=== PATIENT | female | born 1980 | race Caucasian/White ===

== ENCOUNTER → 2019-05-14 | Outpatient (CLI) | payer OTHER ==
--- NOTE | 2019-05-14 17:14 | XR ---
EXAMINATION TYPE: XR hand complete RT DATE OF EXAM: 05/14/2019 COMPARISON: NONE HISTORY: 38-year-old female possible glass in hand, M25.559, M79.644, M54.9 TECHNIQUE: 3 views FINDINGS: No retained radiopaque foreign body is identified. No acute fracture, subluxation, or dislocation. IMPRESSION: No retained radiopaque foreign body seen. No acute osseous abnormality.
--- NOTE | 2019-05-14 17:17 | XR ---
EXAMINATION TYPE: XR lumbosacral spine min 4V, XR Hip Bilateral 2 views each Complete DATE OF EXAM: 05/14/2019 COMPARISON: NONE HISTORY: 38-year-old female chronic hip pain, M25.559, M79.644, M54.9 FINDINGS: Lumbar spine: There seems to be a transitional lumbosacral segment on the frontal view, not clearly identified on t he lateral view. Facet arthropathy lower lumbar spine. Vertebral body heights are preserved and align ment is maintained. No pars interarticularis defect. Hips: Joint space appears relatively maintained in both hips. No acute fracture, subluxation, or dislocatio n. IMPRESSION: 1. Lumbar spine: Facet arthropathy lower lumbar spine. Possible transitional lumbosacral segment. No vertebral compression collapse or malalignment. 2. Hips: No acute osseous abnormality seen.
== END | disposition home or self-care (01) ==
LOC: RADXRMAIN 15:25
PROVIDERS: ATTEND Physician Assistant
DX: M79.644 Pain in right finger(s) (principal); M46.96 Unspecified inflammatory spondylopathy, lumbar region; M25.551 Pain in right hip; M25.552 Pain in left hip
CPT/HCPCS: 72110; 73521

== ENCOUNTER → 2019-05-14 | Outpatient (CLI) | payer OTHER ==
--- NOTE | 2019-05-15 09:44 | MM ---
Reason for exam: screening (asymptomatic). Baseline mammogram. History: Family history of breast cancer in mother at age 65, breast cancer in maternal grandmother, and breast cancer in paternal grandmother. Physical Findings: Nurse Summary: 1cm nodule in the right breast at 10 o'clock (nurse silvia). MG Screening Mammo w CAD Bilateral CC and MLO view(s) were taken. The breast tissue is heterogeneously dense. This may lower the sensitivity of mammography. Focal asymmetry upper outer quadrant on the right and upper inner quadrant anteriorly left breast. These results were verbally communicated with the patient and result sheet given to the patient on 05/14/19. ASSESSMENT: Incomplete: need additional imaging evaluation, BI-RAD 0 RECOMMENDATION: Special view mammogram of both breasts.
--- NOTE | 2019-05-15 09:46 | MM ---
Reason for exam: additional evaluation requested from abnormal screening. History: Family history of breast cancer in mother at age 65, breast cancer in maternal grandmother, and breast cancer in paternal grandmother. Physical Findings: Breast exam preformed at baseline screening. MG Work Up Mamm w CAD BILAT Bilateral spot compression CC, spot compression MLO, and ML view(s) were taken. The breast tissue is heterogeneously dense. This may lower the sensitivity of mammography. Right focal asymmetry upper outer quadrant. Possible distortion posterior left CC view laterally upper outer quadrant. Medial asymmetry density disperses. These results were verbally communicated with the patient and result sheet given to the patient on 05/14/19. ASSESSMENT: Incomplete: need additional imaging evaluation, BI-RAD 0 RECOMMENDATION: Ultrasound of both breasts. (upper outer quadrant)
--- NOTE | 2019-05-15 09:49 | USB ---
Reason for exam: additional evaluation requested from abnormal screening. History: Family history of breast cancer in mother at age 65, breast cancer in maternal grandmother, and breast cancer in paternal grandmother. US Breast Workup Limited JULIANA Right limited breast ultrasound including focal area of concern, retroareolar and axilla demonstrates a 5 x 2 x 4m oval, mixed lesion at 12 o'clock and duct ectasia. Scanned 9-12 o'clock. Left limited breast ultrasound including focal area of concern, retroareolar and axilla demonstrates a 5 x 2 x 4mm oval, mixed lesion at 3 o'clock and duct ectasia. Scanned 12-3 o'clock. No other solid or cystic lesion. 6 month follow up mammogram recommended. These results were verbally communicated with the patient and result sheet given to the patient on 05/14/19. ASSESSMENT: Probably benign, BI-RAD 3 RECOMMENDATION: Follow-up diagnostic mammogram of both breasts in 6 months.
== END | disposition home or self-care (01) ==
LOC: RADMAMWWP 12:22
PROVIDERS: ATTEND Pediatrics
DX: Z12.31 Encounter for screening mammogram for malignant neoplasm of breast (principal); R92.8 Other abnormal and inconclusive findings on diagnostic imaging of breast
CPT/HCPCS: 77066; 77067

== ENCOUNTER → 2019-05-28 | Outpatient (CLI) | payer OTHER ==
--- NOTE | 2019-05-29 08:38 | XR ---
EXAMINATION TYPE: XR foot complete RT DATE OF EXAM: 05/28/2019 COMPARISON: None HISTORY: Pain TECHNIQUE: Three-view right foot FINDINGS: Joint spaces are preserved. No acute fractures or dislocations are evident. Mild soft tissu e prominence may be over the first metatarsal phalangeal joint spaces. Follow-up exams can be performed 7-10 days from acute trauma for continued pain IMPRESSION: 1. No acute osseous abnormality.
== END | disposition home or self-care (01) ==
LOC: RADXRMAIN 15:50
PROVIDERS: ATTEND Family Medicine
DX: M79.671 Pain in right foot (principal)

== ENCOUNTER → 2019-06-05 | Outpatient (CLI) | payer OTHER ==
--- NOTE | 2019-06-05 11:22 | ECHOS ---
STRESS ECHOCARDIOGRAM DATE OF SERVICE: 06/05/2019 INDICATIONS: Chest pain. MEDICATIONS: Lisinopril, metoprolol, simvastatin. BASELINE HEART RATE: 74 BASELINE BLOOD PRESSURE: 109/52 MAXIMUM HEART RATE: 159 MAXIMUM BLOOD PRESSURE: 163/70 85% MPHR: 154 100% MPHR: 181 METS: 10.9 MAXIMUM STAGE REACHED: IV TOTAL EXERCISE TIME: 9-1/2 minutes. CLINICAL INFORMATION: A 38-year-old female with chest pain. Baseline heart rate 74 beats per minute. Baseline blood pressure 109/52 mmHg. Baseline 12-lead ECG shows normal sinus rhythm with normal ST segments, normal QRS, normal ID. Patient exercised on a Los protocol for 9-1/2 minutes achieving a peak heart rate of 159 beats per minute. Normal blood pressure response to exercise. There was a 0.[address]-depression upsloping to horizontal without any chest discomfort or undue shortness of breath. There was no evidence for arrhythmias. Baseline 2D echo images showed normal LV size and systolic function without segmental wall motion abnormalities. At peak exercise, there was excellent augmentation of overall LV contractility without developing any wall motion abnormalities. At recovery, regional global LV systolic function remained normal. IMPRESSION: 1. Good exercise capacity. 2. The patient reached stage IV of the Los protocol. 3. Normal heart rate and blood pressure response without any arrhythmias. 4. Borderline ECG changes, but no commensurate echocardiographic abnormalities. No echocardiographic evidence for ischemia. MMODL / IJN: [id number] /
== END | disposition home or self-care (01) ==
LOC: RADNMMAIN 09:49
PROVIDERS: ATTEND Family Medicine
DX: R07.9 Chest pain, unspecified (principal)
CPT/HCPCS: 93351

== ENCOUNTER → 2019-07-31 | Outpatient (CLI) | payer OTHER ==
--- NOTE | 2019-07-31 13:56 | XR ---
EXAMINATION TYPE: XR shoulder complete LT DATE OF EXAM: 07/31/2019 CLINICAL HISTORY: Pain without injury. TECHNIQUE: Three views of the left shoulder are obtained. COMPARISON: None. FINDINGS: There is no acute fracture/dislocation evident in the left shoulder. Mild to moderate narr owing at glenohumeral and acromioclavicular joints. Distal acromion morphology unremarkable. The visu alized ribs are intact and unremarkable. IMPRESSION: As above.
== END | disposition home or self-care (01) ==
LOC: RADXRMAIN 13:18
PROVIDERS: ATTEND Family Medicine
DX: R93.7 Abnormal findings on diagnostic imaging of other parts of musculoskeletal system (principal); M25.519 Pain in unspecified shoulder

== ENCOUNTER → 2019-08-26 | Outpatient (CLI) | payer OTHER ==
--- NOTE | 2019-08-26 11:08 | US ---
EXAMINATION TYPE: US pelvic complete DATE OF EXAM: 08/26/2019 COMPARISON: NONE CLINICAL HISTORY: N92.0 Excessive and frequent menstruation with reg. Heavy periods. TECHNIQUE: Transabdominal (TA). Transabdominal sonographic images of the pelvis were acquired. EXAM MEASUREMENTS: Uterus: 8.4 x 5.4 x 5.7 cm Endometrial Stripe: .7 cm Right Ovary: 2.6 x 1.7 x 1.4 cm cm Left Ovary: 5.4 x 3.6 x 3.3 cm 1. Uterus: Heterogenous question fibroid visualized 1.6 x 1.5 x 1.1cm. 2. Endometrium: wnl 3. Right Ovary: wnl 4. Left Ovary: Complex area 3.8 x 2.7 x 3.6 cm 5. Bilateral Adnexa: wnl 6. Posterior cul-de-sac: wnl IMPRESSION: 1. Probable leiomyomatous uterus. 2. Complex left ovarian lesion may reflect a hemorrhagic cyst although lesion of other etiology is di fficult to exclude. Follow-up study in 6 weeks is advised.
== END | disposition home or self-care (01) ==
LOC: RADUSWWP 10:03
PROVIDERS: ATTEND Obstetrics & Gynecology
DX: N83.8 Other noninflammatory disorders of ovary, fallopian tube and broad ligament (principal)
CPT/HCPCS: 76856

== ENCOUNTER → 2019-10-28 | Outpatient (CLI) | payer OTHER ==
--- NOTE | 2019-10-28 13:53 | US ---
EXAMINATION TYPE: US pelvic complete DATE OF EXAM: 10/28/2019 COMPARISON: NONE CLINICAL HISTORY: left ovarian cyst N83.0. Follow up to previous TECHNIQUE: Transabdominal (TA). Transabdominal sonographic images of the pelvis were acquired. EXAM MEASUREMENTS: Uterus: 10.3 x 5.8 x 6.7 cm Endometrial Stripe: .7 cm Right Ovary: 3.0 x 2.2 x 2.3 cm Left Ovary: 2.9 x 1.7 x 2.7 cm 1. Uterus: Anteverted heterogenous Fibroid 2.4 x 1.9 cm 2. Endometrium: wnl 3. Right Ovary: wnl 4. Left Ovary: wnl 5. Bilateral Adnexa: wnl 6. Posterior cul-de-sac: wnl IMPRESSION: Fibroid uterus. Left ovary shows an improved appearance
== END | disposition home or self-care (01) ==
LOC: RADUSWWP 11:05
PROVIDERS: ATTEND Obstetrics & Gynecology
DX: D25.9 Leiomyoma of uterus, unspecified (principal); N83.02 Follicular cyst of left ovary
CPT/HCPCS: 76856

== ENCOUNTER → 2019-11-01 | Day surgery (SDC) | payer OTHER ==
[2019-10-31 10:55] VITALS: BMI 32.9
--- NOTE | 2019-10-31 16:18 | P.HPOB ---
History of Present Illness H&P Date: 10/31/19 Chief Complaint: Menorrhagia Patient is a 38-year-old female who has type 1 diabetes and poor sure controls and that are made worse with her heavy vaginal bleeding. She is scheduled for D&C with hysteroscopy NovaSure ablation to limit her bleeding to try and help with her blood sugar control. Risks/benefits/returns to this procedure were reviewed the patient in detail and did include but were not limited to bleeding or infection, damage to bladder or bowel, nerve injuries or vessel injuries as well as potential thermal damage. Potential need for further surgeries. All questions were answered for her prior to proceeding to the operating room. She has had a prior tube ligation. Past Medical History Past Medical History: Diabetes Mellitus, Hyperlipidemia, Hypertension Additional Past Medical History / Comment(s): HEAVY IRREGULAR PERIODS, POSSIBLE CYST ON OVARY. CURRENT FROZEN LT SHOULDER-CANNOT MOVE IT-VERY PAINFUL History of Any Multi-Drug Resistant Organisms: None Reported Past Surgical History: Adenoidectomy, Section, Tonsillectomy Past Anesthesia/Blood Transfusion Reactions: Family History of Problems w/ Anesthesia Additional Past Anesthesia/Blood Transfusion Reaction / Comment(s): MOM HAS PONV Smoking Status: Current every day smoker - Past Family History Mother Family Medical History: Cancer Medications and Allergies Home Medications Medication Instructions Recorded Confirmed Type INSULIN LISPRO (humaLOG) [humaLOG] 0 units SQ DIRECTED 10/31/19 10/31/19 History Ibuprofen [Motrin] 800 mg PO Q8H PRN 10/31/19 10/31/19 History Insulin Glargine,Hum.rec.anlog 18 unit SQ HS 10/31/19 10/31/19 History [Basaglar Kwikpen U-100] Insulin Glargine,Hum.rec.anlog 20 unit SQ QAM 10/31/19 10/31/19 History [Basaglar Kwikpen U-100] Meloxicam [Mobic] 7.5 mg PO DAILY 10/31/19 10/31/19 History Metoprolol Tartrate [Lopressor] 25 mg PO BID 10/31/19 10/31/19 History Simvastatin [Zocor] 20 mg PO DAILY 10/31/19 10/31/19 History lisinopriL 20 mg PO HS 10/31/19 10/31/19 History traMADol HCL [Ultram] 50 mg PO Q6HR PRN 10/31/19 10/31/19 History Allergies Allergy/AdvReac Type Severity Reaction Status Date / Time No Known Allergies Allergy Verified 10/31/19 10:35 Exam Osteopathic Statement: *. No significant issues noted on an osteopathic structural exam other than those noted in the History and Physical/Consult. Intake and Output 10/31/19 10/31/19 10/31/19 06:59 14:59 22:59 Other: Weight 81.647 kg - OBG Physical Exam Breast: both: normal (no masses) Abdomen: bowel sounds normal, no diffuse tenderness, no bruit present, no guarding noted, no hepatomegaly, no splenomegaly, no mass Vulva: both: normal Vagina: normal moisture, no discharge Cervix: no lesion, no discharge Uterus: normal size, normal contour Adnexa: both: normal Anus/Rectum: normal perianal skin, no rectal mass, no hemorrhoids, heme negative
[~2019-11-01] MED LIST: DEXAMETHASONE SOD PHOSPHATE 10 MG/ML 1 ML VIAL IV ONE; HYDROmorphone 0.5 MG/0.5 ML SYRINGE IVP PRN; KETOROLAC 30 MG/ML 1 ML VIAL ONE; LACTATED RINGERS 1,000 ML IV SCH; LIDOCAINE 1% (10MG/ML) FOR IV START INTRADERMA ONE; LIDOCAINE 1% INJ 10MG/ML (20 ML MDV) ONE; MIDAZOLAM 2 MG/2 ML VIAL IV PRN; MIDAZOLAM 2 MG/2 ML VIAL ONE; ONDANSETRON 4 MG/2 ML VIAL IVP ONE; ONDANSETRON 4 MG/2 ML VIAL ONE; PROPOFOL 10 MG/ML 20 ML VIAL IV ONE; Pre Op ABX Message 1 EACH MISC MISCELLANE ONE; SCOPOLAMINE 1.5MG/72HR PATCH TRANSDERM ONE; fentaNYL (PF) 50 MCG/ML 2 ML AMP ONE
[2019-11-01 06:57] LABS: Glucose,Whole Blood 205 mg/dL (75-99)
--- NOTE | 2019-11-01 07:58 | P.OP ---
Date of Procedure: 11/01/19 Preoperative Diagnosis: Menorrhagia Postoperative Diagnosis: Same Procedure(s) Performed: D&C with hysteroscopy and NovaSure Anesthesia: MAC Surgeon: Ger Muñoz Estimated Blood Loss (ml): 5 IV fluids (ml): 700 Pathology: other (Uterine curettings) Condition: stable Disposition: same day Operative Findings: Proliferative endometrium Description of Procedure: Yael was taken to the operating suite where a general anesthetic was found be adequate. She was prepped and draped in the normal sterile fashion and placed in dorsal lithotomy position. Initially a speculum was inserted to the vagina and the anterior lip of the cervix was identified and grasped into tenaculum. Cervix was then dilated and sounded to 11 cm. Camera was inserted with proliferative endometrium noted. Sharp curettings of the endometrium were then obtained and placed on Telfa sent to pathology for evaluation. Once this was accomplished NovaSure system was then inserted with a length of 5.5 with a 3.8 it was tested and once it passes patency test it was enabled and activated. The burn lasted 1 minute 32 seconds. As inclusion cyst was removed and camera was reinserted with excellent burn noted. All instruments were then removed. Sponge, lap, needle counts were all correct 2. Patient was then taken to the recovery room in stable and satisfactory condition. Plan - Discharge Summary Discharge Rx Participant: Yes New Discharge Prescriptions: New Ibuprofen [Motrin] 600 mg PO Q6HR PRN #30 tab PRN Reason: Pain No Action lisinopriL 20 mg PO HS Metoprolol Tartrate [Lopressor] 25 mg PO BID Insulin Glargine,Hum.rec.anlog [Basaglar Kwikpen U-100] 14 unit SQ HS INSULIN LISPRO (humaLOG) [humaLOG] 3 units SQ DIRECTED traMADol HCL [Ultram] 50 mg PO Q6HR PRN PRN Reason: Pain Simvastatin [Zocor] 20 mg PO DAILY Meloxicam [Mobic] 7.5 mg PO DAILY Ibuprofen [Motrin] 800 mg PO Q8H PRN PRN Reason: Pain Insulin Glargine,Hum.rec.anlog [Basaglar Kwikpen U-100] 20 unit SQ QAM Discharge Medication List INSULIN LISPRO (humaLOG) [humaLOG] 3 units SQ DIRECTED 10/31/19 [History] Ibuprofen [Motrin] 800 mg PO Q8H PRN 07/23/20 [History] Insulin Glargine,Hum.rec.anlog [Basaglar Kwikpen U-100] 14 unit SQ HS 10/31/19 [History] Insulin Glargine,Hum.rec.anlog [Basaglar Kwikpen U-100] 20 unit SQ QAM 10/31/19 [History] Meloxicam [Mobic] 7.5 mg PO DAILY 10/31/19 [History] Metoprolol Tartrate [Lopressor] 25 mg PO BID 10/31/19 [History] Simvastatin [Zocor] 20 mg PO DAILY 10/31/19 [History] lisinopriL 20 mg PO HS 10/31/19 [History] traMADol HCL [Ultram] 50 mg PO Q6HR PRN 10/31/19 [History] Ibuprofen [Motrin] 600 mg PO Q6HR PRN #30 tab 11/01/19 [Rx] Follow up Appointment(s)/Referral(s): Ger Muñoz DO [Doctor of Osteopathic Medicine] - 1 Week Activity/Diet/Wound Care/Special Instructions: No heavy lifting, limit stairs and driving, and pelvic rest. If any high temperatures, heavy bleeding, or severe pain call my office
[2019-11-01 08:13] VITALS: TEMP 97
[2019-11-01 08:17] LABS: Glucose,Whole Blood 175 mg/dL (75-99)
[2019-11-01 08:43] VITALS: RESP 17
[2019-11-01 08:51] VITALS: BP 138/84; PULSE 67
== END ==
LOC: OR 06:09
PROVIDERS: ATTEND Obstetrics & Gynecology
DX: N84.0 Polyp of corpus uteri (principal); N92.0 Excessive and frequent menstruation with regular cycle; E10.9 Type 1 diabetes mellitus without complications; E78.5 Hyperlipidemia, unspecified; I10 Essential (primary) hypertension; E66.9 Obesity, unspecified; M75.02 Adhesive capsulitis of left shoulder; Z68.33 Body mass index [BMI] 33.0-33.9, adult; Z98.890 Other specified postprocedural states; F17.200 Nicotine dependence, unspecified, uncomplicated; Z80.9 Family history of malignant neoplasm, unspecified; Z79.1 Long term (current) use of non-steroidal anti-inflammatories (NSAID); Z79.4 Long term (current) use of insulin; Z79.899 Other long term (current) drug therapy
CPT/HCPCS: 58563; 81025; 88305; J2250; J2405; J2001; J3010; J1885; J2704

== ENCOUNTER → 2019-11-26 | Outpatient (CLI) | payer OTHER ==
--- NOTE | 2019-11-27 06:20 | MR ---
EXAMINATION TYPE: MR shoulder LT wo con DATE OF EXAM: 11/26/2019 COMPARISON: Outside left shoulder x-ray August 30, 2019. HISTORY: Left shoulder/arm pain, unable to raise arm TECHNIQUE: Multiplanar, multisequence imaging of the left shoulder is performed without contrast. FINDINGS: Rotator Cuff: Distal supraspinatus and infraspinatus tendons are intact. Subscapularis tendon is inta ct. Rotator cuff muscle bulk is preserved. Acromioclavicular Joint: Mild to moderate narrowing with mild to moderate superior capsular hypertrop hy. No significant spurring. Distal acromion morphology unremarkable. Underlying fat plane maintained . Glenohumeral Joint: Small to moderate-sized joint effusion. No significant spurring. Mild to moderate narrowing. Labrum: The labrum appears grossly intact given limitation of non-arthrogram study. Biceps Tendon: The long head of biceps is in normal location within bicipital groove. Slightly more p rominent surrounding fluid noted in expected for sizable glenohumeral joint effusion. There is loss o f normal surrounding fat in the rotator cuff interval suggesting best on sagittal T1 weighted images. Bone marrow signal: Some overall heterogeneity. No suspicious edema. Other: No additional significant abnormality is appreciated. IMPRESSION: No rotator cuff or labral tear seen. Mild degenerative changes as detailed above. MRI alpesh dence of adhesive capsulitis
== END | disposition home or self-care (01) ==
LOC: RADMRIMAIN 17:43
PROVIDERS: ATTEND Orthopaedic Surgery
DX: M19.012 Primary osteoarthritis, left shoulder (principal); M75.02 Adhesive capsulitis of left shoulder

== ENCOUNTER 2019-12-09 10:29 | Day surgery (SDC) | payer OTHER ==
[2019-12-04 11:54] VITALS: BMI 29.6
--- NOTE | 2019-12-08 12:22 | HP ---
HISTORY AND PHYSICAL REASON FOR ADMISSION: Surgery is 12/09/2019 HISTORY OF PRESENT ILLNESS: Yael Draper is a 38-year-old lady seen with left shoulder adhesive capsulitis. I recommended manipulation under anesthesia. She was agreeable. Consent was obtained. PAST MEDICAL HISTORY: Insulin-dependent diabetes. SURGICAL HISTORY: section. MEDICATIONS: Insulin. ALLERGIES: None. SOCIAL HISTORY: She smokes a quarter pack cigarettes daily. PHYSICAL EXAMINATION: Evaluation of the left shoulder: Flexion 80 degrees, abduction is 50 degrees. External rotation is 30 degrees. Weakness and pain. There is some tenderness on the rotator cuff insertion site. Impingement sign is positive at 70 degrees. Distal neurovascular exam is intact. X-RAY: Left shoulder revealed a type 2 anterior acromion. MRI left shoulder revealed mild osteoarthritis. IMPRESSION: 1. Left shoulder adhesive capsulitis. 2. Insulin-dependent diabetes. 3. Tobacco use. PLAN: Manipulation under anesthesia, left shoulder with steroid injection. Surgery 12/09/2019. MMODL / IJN: [id number] /
[~2019-12-09 10:29] MED LIST changes: -DEXAMETHASONE SOD PHOSPHATE 10 MG/ML 1 ML VIAL IV ONE; -HYDROmorphone 0.5 MG/0.5 ML SYRINGE IVP PRN; -KETOROLAC 30 MG/ML 1 ML VIAL ONE; -LIDOCAINE 1% (10MG/ML) FOR IV START INTRADERMA ONE; -LIDOCAINE 1% INJ 10MG/ML (20 ML MDV) ONE; -MIDAZOLAM 2 MG/2 ML VIAL IV PRN; -MIDAZOLAM 2 MG/2 ML VIAL ONE; -ONDANSETRON 4 MG/2 ML VIAL IVP ONE; -ONDANSETRON 4 MG/2 ML VIAL ONE; -PROPOFOL 10 MG/ML 20 ML VIAL IV ONE; -SCOPOLAMINE 1.5MG/72HR PATCH TRANSDERM ONE; -fentaNYL (PF) 50 MCG/ML 2 ML AMP ONE
[2019-12-09] MEDS ORDERED: LIDOCAINE 1% (10MG/ML) FOR IV START INTRADERMA ONE (11:06)
[2019-12-09 11:10] LABS: Glucose,Whole Blood 103 mg/dL (75-99)
[2019-12-09 12:22] LABS: Glucose,Whole Blood 88 mg/dL (75-99)
[2019-12-09] MEDS ORDERED: fentaNYL (PF) 50 MCG/ML 2 ML AMP ONE (12:35)
[2019-12-09] MEDS ORDERED: BUPIVACAINE (PF) 0.25% 30 ML VIAL ONE (12:35)
[2019-12-09] MEDS ORDERED: methylPREDNISolone ACETATE 40 MG/ML 1 ML VIAL ONE (12:35)
[2019-12-09] MEDS ORDERED: PROPOFOL 10 MG/ML 20 ML VIAL IV ONE (12:35)
[2019-12-09] MEDS ORDERED: KETOROLAC 15 MG/ML 1 ML VIAL ONE (12:35)
[2019-12-09 12:46] VITALS: TEMP 97.1
--- NOTE | 2019-12-09 12:46 | P.OP ---
Date of Procedure: 12/09/19 Preoperative Diagnosis: Left shoulder adhesive capsulitis Postoperative Diagnosis: Left shoulder adhesive capsulitis Procedure(s) Performed: Manipulation under anesthesia left shoulder with steroid injection Anesthesia: MAC, local Surgeon: Faraz Melchor Estimated Blood Loss (ml): 0 Pathology: none sent Condition: stable Disposition: PACU Indications for Procedure: 38-year-old patient seen with persistent left shoulder adhesive capsulitis. After treatment options were discussed, she elected to proceed with manipulation under anesthesia of the left shoulder with steroid injection. Operative Findings: see description of procedure Description of Procedure: The patient was taken to a monitored anesthesia area. The patient underwent IV sedation by the department of anesthesia. Once sufficient anesthesia was noted I took the shoulder through range of motion with notable audible tearing of the adhesions. Accupril the procedure with full range of motion of the shoulder. The anterior aspect of the left shoulder was prepped and draped in the normal sterile orthopedic fashion. I now injected solution of 1 mL Depo-Medrol and 2 mL quarter percent Marcaine intra-articular under sterile technique. A Band-Aid was applied. The patient was now awakened having tolerated procedure well.
[2019-12-09] MEDS: HYDROmorphone 0.5 MG/0.5 ML SYRINGE IVP PRN ×3 (12:50→13:08)
[2019-12-09 12:58] LABS: Glucose,Whole Blood 95 mg/dL (75-99)
[2019-12-09] MEDS ORDERED: diphenhydrAMINE 50 MG/ML 1 ML VIAL IVP ONE (13:00)
[2019-12-09 13:41] VITALS: RESP 16
[2019-12-09] MEDS ORDERED: HYDROcodone/APAP 7.5-325MG 1 EACH TAB PO ONE (14:10)
[2019-12-09] MEDS ORDERED: HYDROcodone/APAP 7.5-325MG 1 EACH TAB ONE (14:10)
[2019-12-09 14:19] VITALS: BP 151/90; PULSE 63
== END 2019-12-09 14:45 | disposition home or self-care (01) ==
LOC: OR 10:29
PROVIDERS: ATTEND Orthopaedic Surgery
DX: M75.02 Adhesive capsulitis of left shoulder (principal); E11.9 Type 2 diabetes mellitus without complications; M19.012 Primary osteoarthritis, left shoulder; F17.210 Nicotine dependence, cigarettes, uncomplicated; K08.409 Partial loss of teeth, unspecified cause, unspecified class; I34.1 Nonrheumatic mitral (valve) prolapse; I10 Essential (primary) hypertension; E78.5 Hyperlipidemia, unspecified; Z79.4 Long term (current) use of insulin; Z98.890 Other specified postprocedural states; Z79.891 Long term (current) use of opiate analgesic; Z79.899 Other long term (current) drug therapy; Z79.1 Long term (current) use of non-steroidal anti-inflammatories (NSAID)
CPT/HCPCS: 23700; J1200; J1030; J3010; J1885; J2704; J1170

== ENCOUNTER 2020-03-13 13:53 | Emergency (ER) | payer OTHER ==
[2020-03-13 14:05] VITALS: BP 127/80; PULSE 74; RESP 18; TEMP 98
--- NOTE | 2020-03-13 15:00 | ED ---
Extremity Problem HPI - General Chief complaint: Extremity Problem,Nontraumatic Stated complaint: Left, middle finger injury Time Seen by Provider: 03/13/20 14:38 Source: patient Mode of arrival: ambulatory Limitations: no limitations - History of Present Illness Initial comments: 39-year-old female presenting to the emergency department with chief complaint of infection of the finger. Patient states this started about 3 days ago and gradually getting worse. Patient reports it is painful and tender to the touch and is located on the medial aspect of the fingernail. States there is a pocket of pus. States she is a type I diabetic and uses a lancet from that region to obtain her blood glucose. States that could've possibly caused the infection. States her renal function is doing well. States her diabetes is somewhat control. She denies any fevers or chills. - Related Data Home Medications Medication Instructions Recorded Confirmed INSULIN LISPRO (humaLOG) [humaLOG] 3 units SQ DIRECTED 10/31/19 12/04/19 Ibuprofen [Motrin] 800 mg PO Q8H PRN 10/31/19 12/04/19 Insulin Glargine,Hum.rec.anlog 14 unit SQ HS 10/31/19 12/04/19 [Basaglar Kwikpen U-100] Insulin Glargine,Hum.rec.anlog 20 unit SQ QAM 10/31/19 12/04/19 [Basaglar Kwikpen U-100] Meloxicam [Mobic] 7.5 mg PO DAILY 10/31/19 12/04/19 Metoprolol Tartrate [Lopressor] 25 mg PO BID 10/31/19 12/04/19 Simvastatin [Zocor] 20 mg PO DAILY 10/31/19 12/04/19 lisinopriL 20 mg PO HS 10/31/19 12/04/19 traMADol HCL [Ultram] 50 mg PO HS PRN 10/31/19 12/04/19 Previous Rx's Medication Instructions Recorded HYDROcodone/APAP 7.5-325MG [[place] 1 each PO Q6HR PRN #15 tab 12/09/19 7.5] Cephalexin [Keflex] 500 mg PO Q6HR #28 cap 03/13/20 Allergies Allergy/AdvReac Type Severity Reaction Status Date / Time No Known Allergies Allergy Verified 12/09/19 10:58 Review of Systems ROS Statement: Those systems with pertinent positive or pertinent negative responses have been documented in the HPI. ROS Other: All systems not noted in ROS Statement are negative. Past Medical History Past Medical History: Diabetes Mellitus, Hyperlipidemia, Hypertension, Osteoarthritis (OA) Additional Past Medical History / Comment(s): MITRAL VALVE PROLAPSE , TYPE 1 DIABETIC, BONE SPUR LEFT SHOULDER, History of Any Multi-Drug Resistant Organisms: None Reported Past Surgical History: Section, Uterine Ablation Additional Past Surgical History / Comment(s): C SECTION X2 , Past Anesthesia/Blood Transfusion Reactions: No Reported Reaction Past Psychological History: Anxiety Smoking Status: Current every day smoker - Past Family History Mother Family Medical History: Cancer General Exam Limitations: no limitations General appearance: alert, in no apparent distress, obese Head exam: Present: atraumatic, normocephalic, normal inspection Eye exam: Present: normal appearance, PERRL, EOMI Pupils: Present: normal accommodation ENT exam: Present: normal exam, normal oropharynx, mucous membranes moist, TM's normal bilaterally, normal external ear exam Neck exam: Present: normal inspection, full ROM. Absent: tenderness Respiratory exam: Present: normal lung sounds bilaterally. Absent: respiratory distress, wheezes, rales Cardiovascular Exam: Present: regular rate, normal rhythm, normal heart sounds. Absent: systolic murmur, diastolic murmur Extremities exam: Present: full ROM, tenderness, normal capillary refill. Absent: normal inspection (Paronychia left third digit), pedal edema, joint swelling, calf tenderness Back exam: Present: normal inspection, full ROM. Absent: tenderness, CVA tenderness (R), CVA tenderness (L) Neurological exam: Present: alert, oriented X3, normal gait Psychiatric exam: Present: normal affect, normal mood. Absent: depressed, agitated Skin exam: Present: warm, dry, intact, normal color Course Vital Signs 03/13/20 14:01 Temperature 98.0 F Pulse Rate 74 Respiratory 18 Rate Blood Pressure 127/80 O2 Sat by Pulse 99 Oximetry Procedures - Incision & Drainage Consent Obtained: verbal consent Indication: Paronychia Site: other (Left third digit) Size (cm): 1 I&D Cleaning Method: Alcohol Wipe Sterile Field Used?: No Scalpel Used: #11 I&D Drainage Obtained: Pus, Blood Culture Obtained?: No Complications: bleeding Patient Tolerated Procedure: well, no complications Medical Decision Making - Medical Decision Making 39-year-old female presenting to the emergency department with a chief complaint of finger infection. On physical examination, patient has paronychia of the left third digit. Incision and drainage was performed and I was able to get some pus and blood. Patient reports immediate relief of the pressure. Patient was advised to keep her finger in warm water and apply warm compresses. She was advised to take prescribed medication as directed. Return parameters thoroughly discussed the patient was a sitting agreeable. Case discussed with physician. Disposition Clinical Impression: Paronychia of finger Disposition: HOME SELF-CARE Condition: Stable Instructions (If sedation given, give patient instructions): Paronychia (ED) Additional Instructions: Take prescribed medication as directed. Apply warm compresses. Return to emergency department if symptoms worsen. Prescriptions: Cephalexin [Keflex] 500 mg PO Q6HR #28 cap Is patient prescribed a controlled substance at d/c from ED?: No Referrals: Juan Pablo Cox MD [Primary Care Provider] - 1-2 days Time of Disposition: 15:00
== END 2020-03-13 15:12 | disposition home or self-care (01) ==
LOC: EC 13:53
DX: L03.012 Cellulitis of left finger (principal); F17.200 Nicotine dependence, unspecified, uncomplicated; E10.9 Type 1 diabetes mellitus without complications; E78.5 Hyperlipidemia, unspecified; I10 Essential (primary) hypertension; M19.90 Unspecified osteoarthritis, unspecified site; F41.9 Anxiety disorder, unspecified; Z79.4 Long term (current) use of insulin; Z79.899 Other long term (current) drug therapy
CPT/HCPCS: 10060; 99283

== ENCOUNTER → 2020-06-15 | Outpatient (CLI) | payer OTHER ==
[2020-06-15 14:36] LABS: Basophils # (A) 0.08 X 10*3/uL (0.00-0.10); Basophils % (A) 0.7 %; Eosinophils # (A) 0.38 X 10*3/uL (0.04-0.35); Eosinophils % (A) 3.5 %; HCT 43.6 % (37.2-46.3); HGB 14.2 g/dL (12.0-15.0); Lymphocytes # (A) 2.84 X 10*3/uL (0.90-5.00); Lymphocytes % (A) 26.1 %; MCH 30.2 pg (27.0-32.0); MCHC 32.6 g/dL (32.0-37.0); MCV 92.8 fL (80.0-97.0); Mean Platelet Volume 10.1 fL (9.5-12.2); Monocytes # (A) 0.65 X 10*3/uL (0.20-1.00); Neutrophils # (A) 6.88 X 10*3/uL (1.80-7.70); Neutrophils % (A) 63.3 %; Platelet Count 307 X 10*3/uL (140-440); RDW 13.3 % (11.5-14.5); WBC 10.87 X 10*3/uL (4.50-10.00)
[2020-06-15 16:52] LABS: African American GFR (CKD) 92.7 (60.0-200.0); Albumin 4.2 g/dL (3.80-4.90); Albumin/Globulin Ratio 2.21 (1.60-3.17); Anion Gap 5.1 mmol/L (4.00-12.00); BUN/Creat Ratio 15.56 Ratio (12.00-20.00); Calcium 8.9 mg/dL (8.7-10.3); Carbon Dioxide 27.9 mmol/L (21.6-31.8); Chol/HDL Ratio 4.6; Globulin 1.9 g/dL (1.6-3.3); LDL Cholesterol,Calculated 134.8 mg/dL (0.0-131.0); Total Bilirubin 0.5 mg/dL (0.2-1.2); Total Protein 6.1 g/dL (6.2-8.2); VLDL Calculation 27.2 mg/dL (5.00-40.00)
== END | disposition home or self-care (01) ==
LOC: LABWHC1 09:13
PROVIDERS: ATTEND Nurse Practitioner Family
DX: E10.8 Type 1 diabetes mellitus with unspecified complications (principal)
CPT/HCPCS: 36415; 80053; 80061; 83036; 85025

== ENCOUNTER → 2020-06-29 | Outpatient (CLI) | payer OTHER ==
--- NOTE | 2020-06-29 15:03 | USB ---
Reason for exam: clinical finding. History: Family history of breast cancer in mother at age 65, breast cancer in maternal grandmother, and breast cancer in paternal grandmother. Physical Findings: Nurse did not find any significant physical abnormalities on exam. US Breast BILAT Right complete breast ultrasound includes all four quadrants, the retroareolar region and axilla. Finding demonstrates a 0.5 x 0.3 x 0.4cm mixed lesion at 12 o'clock, a 0.6 x 0.4 x 0.7cm cystic cluster at 6 o'clock and a 0.5 x 0.4 x 0.6cm cystic cluster at 10 o'clock. Left complete breast ultrasound includes all four quadrants, the retroareolar region and axilla. Finding demonstrates a 0.5 x 0.3 x 0.4cm mixed lesion at 3 o'clock, a 0.3 x 0.3 x 0.3cm lesion too small to characterize at 5 o'clock and duct ectasia at the posterior nipple. These results were verbally communicated with the patient and result sheet given to the patient on 06/29/20. ASSESSMENT: Incomplete: need additional imaging evaluation, BI-RAD 0 RECOMMENDATION: Follow-up diagnostic mammogram of both breasts.
--- NOTE | 2020-06-29 15:05 | MM ---
Reason for exam: additional evaluation requested from prior study. Last mammogram was performed 1 year and 2 months ago. History: Family history of breast cancer in mother at age 65, breast cancer in maternal grandmother, and breast cancer in paternal grandmother. Physical Findings: Nurse did not find any significant physical abnormalities on exam. MG Diagnostic Mammo w CAD JULIANA Bilateral CC and MLO view(s) were taken. Prior study comparison: May 14, 2019, bilateral MG work up mamm w CAD BILAT. May 14, 2019, bilateral MG screening mammo w CAD. The breast tissue is heterogeneously dense. This may lower the sensitivity of mammography. Stable benign calcifications. No significant new findings when compared with previous films. These results were verbally communicated with the patient and result sheet given to the patient on 06/29/20. ASSESSMENT: Benign, BI-RAD 2 RECOMMENDATION: Routine screening mammogram of both breasts in 1 year.
== END | disposition home or self-care (01) ==
LOC: RADUSWWP 10:39
PROVIDERS: ATTEND Family Medicine
DX: R92.1 Mammographic calcification found on diagnostic imaging of breast (principal); Z80.3 Family history of malignant neoplasm of breast
CPT/HCPCS: 77066

== ENCOUNTER 2020-07-03 11:24 | Emergency (ER) | payer OTHER ==
[2020-07-03 11:32] VITALS: BP 150/98; PULSE 95; RESP 18; TEMP 98.7
[2020-07-03] MEDS ORDERED: KETOROLAC 15 MG/ML 1 ML VIAL IVP STA (11:45)
[2020-07-03] MEDS ORDERED: CYCLOBENZAPRINE 10 MG TAB PO STA (11:45)
[2020-07-03] MEDS ORDERED: methylPREDNISolone SOD SUCCI 125 MG/2 ML VIAL IM STA (11:45)
--- NOTE | 2020-07-03 11:47 | ED ---
Back Pain HPI - General Chief Complaint: Back Pain/Injury Stated Complaint: Lower back pain Time Seen by Provider: 07/03/20 11:33 Source: patient, RN notes reviewed Limitations: no limitations - History of Present Illness Initial Comments: Patient is a 3-year-old female presents to emergency department complaining of left lower back pain that radiates down the left leg. She noted that she has not had any injury or trauma to low back, she was just walking on the beach and laying in bed she noted the pain started. She stated the pain is a 10 out of 10 while laying down or standing up. It is been unrelieved with medications. She denied any weakness numbness tingling bladder or bowel incontinence decreased range of motion or strength chest pain shortness of breath headache nausea vomiting diarrhea constipation fever fatigue chills. - Related Data Home Medications Medication Instructions Recorded Confirmed INSULIN LISPRO (humaLOG) [humaLOG] 3 units SQ DIRECTED 10/31/19 12/04/19 Ibuprofen [Motrin] 800 mg PO Q8H PRN 10/31/19 12/04/19 Insulin Glargine,Hum.rec.anlog 14 unit SQ HS 10/31/19 12/04/19 [Basaglar Kwikpen U-100] Insulin Glargine,Hum.rec.anlog 20 unit SQ QAM 10/31/19 12/04/19 [Basaglar Kwikpen U-100] Meloxicam [Mobic] 7.5 mg PO DAILY 10/31/19 12/04/19 Metoprolol Tartrate [Lopressor] 25 mg PO BID 10/31/19 12/04/19 Simvastatin [Zocor] 20 mg PO DAILY 10/31/19 12/04/19 lisinopriL 20 mg PO HS 10/31/19 12/04/19 traMADol HCL [Ultram] 50 mg PO HS PRN 10/31/19 12/04/19 Previous Rx's Medication Instructions Recorded HYDROcodone/APAP 7.5-325MG [[place] 1 each PO Q6HR PRN #15 tab 12/09/19 7.5] Cephalexin [Keflex] 500 mg PO Q6HR #28 cap 03/13/20 Allergies Allergy/AdvReac Type Severity Reaction Status Date / Time No Known Allergies Allergy Verified 12/09/19 10:58 Review of Systems ROS Statement: Those systems with pertinent positive or pertinent negative responses have been documented in the HPI. ROS Other: All systems not noted in ROS Statement are negative. Past Medical History Past Medical History: Diabetes Mellitus, Hyperlipidemia, Hypertension, Osteoarthritis (OA) Additional Past Medical History / Comment(s): MITRAL VALVE PROLAPSE , TYPE 1 DIABETIC, BONE SPUR LEFT SHOULDER, History of Any Multi-Drug Resistant Organisms: None Reported Past Surgical History: Section, Uterine Ablation Additional Past Surgical History / Comment(s): C SECTION X2 , Past Anesthesia/Blood Transfusion Reactions: No Reported Reaction Past Psychological History: Anxiety Smoking Status: Current every day smoker Past Alcohol Use History: None Reported Past Drug Use History: None Reported - Past Family History Mother Family Medical History: Cancer General Exam Limitations: no limitations General appearance: alert, in no apparent distress Head exam: Present: atraumatic, normocephalic, normal inspection Eye exam: Present: normal appearance, PERRL, EOMI. Absent: scleral icterus, conjunctival injection, periorbital swelling ENT exam: Present: normal exam, mucous membranes moist Neck exam: Present: normal inspection. Absent: tenderness, meningismus, lymphadenopathy Respiratory exam: Present: normal lung sounds bilaterally. Absent: respiratory distress, wheezes, rales, rhonchi, stridor Cardiovascular Exam: Present: regular rate, normal rhythm, normal heart sounds. Absent: systolic murmur, diastolic murmur, rubs, gallop, clicks GI/Abdominal exam: Present: soft, normal bowel sounds. Absent: distended, tenderness, guarding, rebound, rigid Extremities exam: Present: normal inspection, full ROM, normal capillary refill, other (Positive straight leg raise test right leg). Absent: tenderness, pedal edema, joint swelling, calf tenderness Back exam: Present: normal inspection, tenderness (Over left SI joint) Neurological exam: Present: alert, oriented X3, CN II-XII intact Expanded Patient oriented to: Present: person, place, time Speech: Present: fluid speech Motor strength exam: RUE: 5, LUE: 5, RLE: 5, LLE: 5 Psychiatric exam: Present: normal affect, normal mood Skin exam: Present: warm, dry, intact, normal color. Absent: rash Course Vital Signs 07/03/20 11:27 Temperature 98.7 F Pulse Rate 95 Respiratory 18 Rate Blood Pressure 150/98 O2 Sat by Pulse 99 Oximetry Medical Decision Making - Medical Decision Making 39-year-old female complaining of left lower back pain that radiates down the left leg. Lumbar x-ray, 15 mg of Toradol, 125 mg of Solu-Medrol, 10 mg of Flexeril ordered. Case discussed with Dr. Wilkins, patient could discharge home with follow-up primary care. - Radiology Data Radiology results: report reviewed, image reviewed Lumbar spine x-ray: Mild multilevel degenerative disc disease with facet arthropathy. Consider MRI follow-up as clinically warranted. Disposition Clinical Impression: Strain of lumbar region, Sciatica Disposition: HOME SELF-CARE Condition: Stable Instructions (If sedation given, give patient instructions): Acute Low Back Pain (ED) Additional Instructions: Please return to the Emergency Department if symptoms worsen or any other concerns. Follow-up with primary care in 2-3 days. Take [id number] anti-inflammatories for any aches and pains. Rest lower back. Potential start physical therapy, asked primary care for referral. If pain persists possibly have to get right. Is patient prescribed a controlled substance at d/c from ED?: No Referrals: Juan Pablo Cox MD [Primary Care Provider] - 1-2 days Time of Disposition: 12:53
--- NOTE | 2020-07-03 12:42 | XR ---
EXAM TYPE: LUMBAR SPINE X RAY SERIES COMPARISON: 05/14/2019 HISTORY: Lower back pain TECHNIQUE: 4 views are submitted. FINDINGS: Alignment is anatomic. The pedicles are intact. The transverse processes are intact. There is no s pondylolysis or spondylolisthesis. Sclerotic density overlying the upper margin of L2 is nonspecific . Facet arthropathy L4-5 and L5-S1. Mild multilevel degenerative disc disease. IMPRESSION: 1. Mild multilevel degenerative disc disease with facet arthropathy. Consider MRI follow-up as clinic ally warranted.
== END 2020-07-03 13:00 | disposition home or self-care (01) ==
LOC: EC 11:24
DX: S39.012A Strain of muscle, fascia and tendon of lower back, initial encounter (principal); M54.30 Sciatica, unspecified side; I10 Essential (primary) hypertension; E78.5 Hyperlipidemia, unspecified; M19.90 Unspecified osteoarthritis, unspecified site; F41.9 Anxiety disorder, unspecified; F17.200 Nicotine dependence, unspecified, uncomplicated; E10.9 Type 1 diabetes mellitus without complications
CPT/HCPCS: 72100; 96372; 96374; 99283

== ENCOUNTER 2020-07-19 11:39 | Emergency (ER) | payer OTHER ==
--- NOTE | 2020-07-19 12:55 | ED ---
General Adult HPI - General Source: patient Mode of arrival: wheelchair Limitations: no limitations <Franki Cuevas - Last Filed: 07/19/20 12:52> <Santi Mosley - Last Filed: 07/19/20 17:08> - General Stated complaint: Back pain - History of Present Illness Initial comments: Pt seen for advanced traige purposes: 39-year-old female presents to the emergency room for a chief complaint low back pain. Patient states she was walking on the beach when she felt a pain in the back. Patient states the pain radiates down the left leg. States this has been ongoing a couple weeks. States she is suppose to get an MRI through primary care but has not heard anything back from them. She has been trying ibuprofen and tylenol 3 without relief as well as a muscle relaxer. (Franki Cuevas) Patient is a 39-year-old female that presents complaining of sciatica on the left side. She was recently seen on 07/03/2020. She was given a Solu-Medrol injection and told to follow-up with primary care to hospital given MRI. She notes that she is called her primary care and has her nothing back about an MRI prescription. She returns today with the same pain that she states is a 8-9 out of 10 constant with radicular symptoms down her left leg. She denied any new trauma/injury, weakness, decreased range of motion, difficulty urinating or having bowel movements. She denied any chest pain shortness breath headache nausea vomiting diarrhea constipation (Santi Mosley) - Related Data Home Medications Medication Instructions Recorded Confirmed INSULIN LISPRO (humaLOG) [humaLOG] 3 units SQ DIRECTED 10/31/19 12/04/19 Ibuprofen [Motrin] 800 mg PO Q8H PRN 10/31/19 12/04/19 Insulin Glargine,Hum.rec.anlog 14 unit SQ HS 10/31/19 12/04/19 [Basaglar Kwikpen U-100] Insulin Glargine,Hum.rec.anlog 20 unit SQ QAM 10/31/19 12/04/19 [Basaglar Kwikpen U-100] Meloxicam [Mobic] 7.5 mg PO DAILY 10/31/19 12/04/19 Metoprolol Tartrate [Lopressor] 25 mg PO BID 10/31/19 12/04/19 Simvastatin [Zocor] 20 mg PO DAILY 10/31/19 12/04/19 lisinopriL 20 mg PO HS 10/31/19 12/04/19 traMADol HCL [Ultram] 50 mg PO HS PRN 10/31/19 12/04/19 Previous Rx's Medication Instructions Recorded HYDROcodone/APAP 7.5-325MG [[place] 1 each PO Q6HR PRN #15 tab 12/09/19 7.5] Cephalexin [Keflex] 500 mg PO Q6HR #28 cap 03/13/20 HYDROcodone/APAP 7.5-325MG [[place] 1 tab PO Q6HR PRN 3 Days #12 tab 07/19/20 7.5-325] predniSONE 50 mg PO DAILY #5 tab 07/19/20 Allergies Allergy/AdvReac Type Severity Reaction Status Date / Time No Known Allergies Allergy Verified 07/19/20 12:56 Review of Systems ROS Other: All systems not noted in ROS Statement are negative. <Franki Cuevas P - Last Filed: 07/19/20 12:52> ROS Other: All systems not noted in ROS Statement are negative. <Santi Mosley - Last Filed: 07/19/20 17:08> ROS Statement: Those systems with pertinent positive or pertinent negative responses have been documented in the HPI. Past Medical History Past Medical History: Diabetes Mellitus, Hyperlipidemia, Hypertension, Osteoarthritis (OA) Additional Past Medical History / Comment(s): MITRAL VALVE PROLAPSE , TYPE 1 DIABETIC, BONE SPUR LEFT SHOULDER, History of Any Multi-Drug Resistant Organisms: None Reported Past Surgical History: Section, Uterine Ablation Additional Past Surgical History / Comment(s): C SECTION X2 , Past Anesthesia/Blood Transfusion Reactions: No Reported Reaction Past Psychological History: Anxiety Smoking Status: Current every day smoker Past Alcohol Use History: None Reported Past Drug Use History: None Reported - Past Family History Mother Family Medical History: Cancer <Franki Cuevas P - Last Filed: 07/19/20 12:52> General Exam General appearance: alert, in no apparent distress, in distress (Neck and greater pain) Head exam: Present: atraumatic, normocephalic, normal inspection Eye exam: Present: normal appearance, PERRL, EOMI. Absent: scleral icterus, conjunctival injection, periorbital swelling Neck exam: Present: normal inspection. Absent: tenderness, meningismus, lympha denopathy Respiratory exam: Present: normal lung sounds bilaterally. Absent: respiratory distress, wheezes, rales, rhonchi, stridor Cardiovascular Exam: Present: regular rate, normal rhythm, normal heart sounds. Absent: systolic murmur, diastolic murmur, rubs, gallop, clicks GI/Abdominal exam: Present: soft, normal bowel sounds. Absent: distended, tenderness, guarding, rebound, rigid Extremities exam: Present: normal inspection, full ROM, normal capillary refill. Absent: tenderness, pedal edema, joint swelling, calf tenderness Back exam: Present: normal inspection, tenderness (Over the left SI) Neurological exam: Present: alert, oriented X3, CN II-XII intact Psychiatric exam: Present: normal affect, normal mood Skin exam: Present: warm, dry, intact, normal color. Absent: rash <Santi Mosley - Last Filed: 07/19/20 17:08> Course Vital Signs 07/19/20 12:52 Temperature 98.1 F Pulse Rate 113 H Respiratory 20 Rate Blood Pressure 133/86 O2 Sat by Pulse 97 Oximetry Medical Decision Making <Santi Mosley - Last Filed: 07/19/20 17:08> - Medical Decision Making 39-year-old female complaining of left sciatica with radicular symptoms down the leg. Lumbar x-ray, 1 mg of Dilaudid ordered. X-ray negative for any acute osseous process. Case discussed with Dr. Agudelo, patient can discharge home with follow-up to orthopedist. (Santi Mosley) Disposition <Franki Cuevas - Last Filed: 07/19/20 12:52> Is patient prescribed a controlled substance at d/c from ED?: Yes When asked, does pt state using other controlled substances?: Yes If prescribed controlled substance>3 days was MAPS reviewed?: Prescribed <3 Days If opioid is for acute pain is fill amount 7 days or less?: Yes If Rx opioid, was Start Talking consent form obtained?: Yes Time of Disposition: 17:08 <Santi Mosley - Last Filed: 07/19/20 17:08> Clinical Impression: Strain of lumbar region, Sciatica Disposition: HOME SELF-CARE Condition: Stable Instructions (If sedation given, give patient instructions): Acute Low Back Pain (ED) Additional Instructions: Please return to the Emergency Department if symptoms worsen or any other concerns. Follow-up with orthopedics in 2-4 days to get MRI prescription. Follow-up with primary care in 3-5 days. Take pain medication as prescribed. Rest, use as tolerated. Prescriptions: HYDROcodone/APAP 7.5-325MG [[place] 7.5-325] 1 tab PO Q6HR PRN 3 Days #12 tab PRN Reason: Severe Pain predniSONE 50 mg PO DAILY #5 tab Referrals: Juan Pablo Cox MD [Primary Care Provider] - 1-2 days
[2020-07-19] MEDS ORDERED: HYDROmorphone 1 MG/ML 1 ML SYRINGE IM STA (15:35)
--- NOTE | 2020-07-19 17:11 | ED ---
Disposition Clinical Impression: Strain of lumbar region, Sciatica Disposition: HOME SELF-CARE Condition: Stable Instructions (If sedation given, give patient instructions): Acute Low Back Pain (ED) Additional Instructions: Please return to the Emergency Department if symptoms worsen or any other concerns. Follow-up with orthopedics in 2-4 days to get MRI prescription. Follow-up with primary care in 3-5 days. Take pain medication as prescribed. Rest, use as tolerated. Prescriptions: HYDROcodone/APAP 7.5-325MG [[place] 7.5-325] 1 tab PO Q6HR PRN 3 Days #12 tab PRN Reason: Severe Pain predniSONE 50 mg PO DAILY #5 tab Is patient prescribed a controlled substance at d/c from ED?: Yes When asked, does pt state using other controlled substances?: Yes If prescribed controlled substance>3 days was MAPS reviewed?: Prescribed <3 Days If opioid is for acute pain is fill amount 7 days or less?: Yes If Rx opioid, was Start Talking consent form obtained?: Yes Referrals: Juan Pablo Cox MD [Primary Care Provider] - 1-2 days Heather Blue DO [Doctor of Osteopathic Medicine] - 1-2 days
--- NOTE | 2020-07-19 17:12 | XR ---
Result: History: Low back pain.. Comparison: None available. Technique: 4 views of the lumbar spine. Findings: The bone mineralization is normal. Images of the lumbar spine demonstrate 5 lumbar-type vertebrae. There is no acute fracture or sublux ation. The vertebral body heights are preserved throughout the imaged lumbar spine. The vertebral e lements are in anatomic alignment. The disc heights are maintained. Impression: No significant osseous abnormality.
[2020-07-19 17:51] VITALS: BP 128/82; PULSE 100; RESP 18; TEMP 98.2
== END 2020-07-19 17:51 | disposition home or self-care (01) ==
LOC: EC 11:39
DX: S39.012A Strain of muscle, fascia and tendon of lower back, initial encounter (principal); E78.5 Hyperlipidemia, unspecified; I10 Essential (primary) hypertension; M19.90 Unspecified osteoarthritis, unspecified site; F17.200 Nicotine dependence, unspecified, uncomplicated; E10.9 Type 1 diabetes mellitus without complications; Z79.4 Long term (current) use of insulin; Y93.01 Activity, walking, marching and hiking
CPT/HCPCS: 72100; 99283; 96372; J1170

== ENCOUNTER 2020-07-29 15:41 | Emergency (ER) | payer OTHER ==
[2020-07-29 16:33] VITALS: RESP 18
[2020-07-29] MEDS ORDERED: MORPHINE SULFATE 4 MG/ML SYRINGE IV STA (17:10)
--- NOTE | 2020-07-29 17:18 | ED ---
General Adult HPI - General Chief complaint: Back Pain/Injury Stated complaint: Leg is numb/sciatica pain Time Seen by Provider: 07/29/20 16:54 Source: patient Mode of arrival: ambulatory Limitations: no limitations - History of Present Illness Initial comments: Dictation was produced using [employer] dictation software. please excuse any grammatical, word or spelling errors. This patient was cared for during a federal and state declared state of emergency secondary to Covid 19 Chief Complaint: 39-year-old female presents with back pain History of Present Illness: 39-year-old female she presents with worsening back pain. Patient states she was diagnosed with sciatica one month ago. She states that initially when she first expressed pain she was walking along the beach when she felt a sharp pain in her back. She started after patient started having tingling and paresthesias to the left anterior tibial area. In out of the emergency department prescribed medications. She did follow up with her primary care physician and was given order for MRI to be done in 8 days. Patient has MRI scheduled for the of this month. She denies any fever. No saddle anesthesia. Denies any urinary incontinence or retention. She states that she is in the ER today because her pain is getting worse. She states that her pain is worse with movement especially going from sitting to standing or lying down. States that sitting is the most comfortable position. The ROS documented in this emergency department record has been reviewed and confirmed by me. Those systems with pertinent positive or negative responses have been documented in the HPI. All other systems are other negative and/or noncontributory. PHYSICAL EXAM: General Impression: Alert and oriented x3, mild distress secondary to pain HEENT: Normocephalic atraumatic, extra-ocular movements intact, pupils equal and reactive to light bilaterally, mucous membranes moist. Cardiovascular: Heart regular rate and rhythm Chest: Able to complete full sentences, no retractions, no tachypnea Abdomen: abdomen soft, non-tender, non-distended, no organomegaly Musculoskeletal: Pulses present and equal in all extremities, no peripheral edema Motor: no focal deficits noted Neurological: CN II-XII grossly intact, no focal motor or sensory deficits noted Skin: Intact with no visualized rashes Psych: Normal affect and mood ED course: 39-year-old female presents with back pain. Clinical presentation consistent with sciatica. Vital signs upon arrival are within acceptable limits. Patient does not have any high-risk features. She states that her pain is getting worse. CT ordered of the lumbar spine. Patient given IM morphine. Clinical presentation consistent with sciatica. CT of the lumbar spine shows mild broad disc bulge and mild facet arthropathy bilateral at the L4-L5 level is also additional facet arthropathy at L5-S1 level. She does not have any red flag symptoms of back pain. She has no constitutional symptoms or pyrexia to suggest spinal infection patient does not have any symptoms to suggest cauda equina. Patient reevaluated bedside found to be in stable medical condition she reports significant improvement of her symptoms with the morphine injection. Disposition options were discussed. She is agreeable for discharge with outpatient referral to a spinal surgeon. Patient given by mouth analgesics. Patient is agreeable with plan. She still told to maintain her MRI appointment. Return precautions discussed. - Related Data Home Medications Medication Instructions Recorded Confirmed INSULIN LISPRO (humaLOG) [humaLOG] 3 units SQ DIRECTED 10/31/19 12/04/19 Ibuprofen [Motrin] 800 mg PO Q8H PRN 10/31/19 12/04/19 Insulin Glargine,Hum.rec.anlog 14 unit SQ HS 10/31/19 12/04/19 [Basaglar Kwikpen U-100] Insulin Glargine,Hum.rec.anlog 20 unit SQ QAM 10/31/19 12/04/19 [Basaglar Kwikpen U-100] Meloxicam [Mobic] 7.5 mg PO DAILY 10/31/19 12/04/19 Metoprolol Tartrate [Lopressor] 25 mg PO BID 10/31/19 12/04/19 Simvastatin [Zocor] 20 mg PO DAILY 10/31/19 12/04/19 lisinopriL 20 mg PO HS 10/31/19 12/04/19 traMADol HCL [Ultram] 50 mg PO HS PRN 10/31/19 12/04/19 Previous Rx's Medication Instructions Recorded HYDROcodone/APAP 7.5-325MG [[place] 1 each PO Q6HR PRN #15 tab 12/09/19 7.5] Cephalexin [Keflex] 500 mg PO Q6HR #28 cap 03/13/20 HYDROcodone/APAP 7.5-325MG [[place] 1 tab PO Q6HR PRN 3 Days #12 tab 07/19/20 7.5-325] predniSONE 50 mg PO DAILY #5 tab 07/19/20 HYDROcodone/APAP 5-325MG [[place] 1 tab PO Q6HR PRN 3 Days #12 tab 07/29/20 5-325] Allergies Allergy/AdvReac Type Severity Reaction Status Date / Time No Known Allergies Allergy Verified 07/29/20 16:30 Review of Systems ROS Statement: Those systems with pertinent positive or pertinent negative responses have been documented in the HPI. ROS Other: All systems not noted in ROS Statement are negative. Past Medical History Past Medical History: Diabetes Mellitus, Hyperlipidemia, Hypertension, Osteoarthritis (OA) Additional Past Medical History / Comment(s): MITRAL VALVE PROLAPSE , TYPE 1 DIABETIC, BONE SPUR LEFT SHOULDER, History of Any Multi-Drug Resistant Organisms: None Reported Past Surgical History: Section, Uterine Ablation Additional Past Surgical History / Comment(s): C SECTION X2 , Past Anesthesia/Blood Transfusion Reactions: No Reported Reaction Past Psychological History: No Psychological Hx Reported, Anxiety Smoking Status: Current every day smoker Past Alcohol Use History: None Reported Past Drug Use History: None Reported - Past Family History Mother Family Medical History: Cancer General Exam Limitations: no limitations Course Vital Signs 07/29/20 16:30 Temperature 98.2 F Pulse Rate 99 Respiratory 18 Rate Blood Pressure 137/87 O2 Sat by Pulse 97 Oximetry Disposition Clinical Impression: Sciatica Disposition: HOME SELF-CARE Condition: Fair Instructions (If sedation given, give patient instructions): Acute Low Back Pain (ED) Prescriptions: HYDROcodone/APAP 5-325MG [[place] 5-325] 1 tab PO Q6HR PRN 3 Days #12 tab PRN Reason: Severe Pain Is patient prescribed a controlled substance at d/c from ED?: Yes If prescribed controlled substance>3 days was MAPS reviewed?: Prescribed <3 Days Referrals: Juan Pablo Cox MD [Primary Care Provider] - 1-2 days Juan Daniel Bethea DO [Doctor of Osteopathic Medicine] - 1-2 days Time of Disposition: 18:00
--- NOTE | 2020-07-29 17:42 | CT ---
EXAMINATION TYPE: CT lumbar spine wo con DATE OF EXAM: 07/29/2020 5:35 PM COMPARISON: Lumbar spine x-ray 10 days ago HISTORY: Low back pain with Left leg numbness. CT DLP: 925.9 mGycm Automated exposure control for dose reduction was used. Unenhanced CT of the lumbar spine was performed. Bone and soft tissue window settings are submitted as well as coronal and sagittal reconstructions. 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 Given this assumption there 5 lumbar type vertebra. Vertebral body heights and disc space heights are maintained. Spinal canal is preserved. No significa nt spurring is present. No acute fracture or dislocation is seen. Axial images show mild broad disc bulge and mild facet arthropathy bilaterally at L4-L5 level. There is additional mild facet arthropathy at L5-S1 level. Paraspinal muscle bulk maintained. IMPRESSION: As above. No acute findings are evident.
[2020-07-29 19:37] VITALS: BP 133/86; PULSE 103; TEMP 97.7
== END 2020-07-29 18:40 | disposition home or self-care (01) ==
LOC: EC 15:41
DX: M54.40 Lumbago with sciatica, unspecified side (principal); I10 Essential (primary) hypertension; E78.5 Hyperlipidemia, unspecified; M19.90 Unspecified osteoarthritis, unspecified site; F41.9 Anxiety disorder, unspecified; F17.200 Nicotine dependence, unspecified, uncomplicated; Z79.1 Long term (current) use of non-steroidal anti-inflammatories (NSAID); Z79.4 Long term (current) use of insulin; Z79.52 Long term (current) use of systemic steroids
CPT/HCPCS: 72131; 99283; 96374; J2270

== ENCOUNTER → 2020-09-01 | Outpatient (CLI) | payer OTHER ==
--- NOTE | 2020-09-01 11:37 | MR ---
EXAMINATION TYPE: MR lumbar spine wo con DATE OF EXAM: 09/01/2020 COMPARISON: film 08/10/2020 HISTORY: Low back pain and numbness that goes down left leg for 2-3 months. TECHNIQUE: Multiplanar, multisequence images of the lumbar spine were acquired. L1-L2: Normal disc appearance without desiccation. No herniation, protrusion or disc bulging. No ca nal stenosis is present. Foramina are patent bilaterally. L2-L3: Normal disc appearance without desiccation. No herniation, protrusion or disc bulging. No ca nal stenosis is present. Foramina are patent bilaterally. L3-L4: Normal disc appearance without desiccation. No herniation, protrusion or disc bulging. No ca nal stenosis is present. Foramina are patent bilaterally. L4-L5: Normal disc appearance without desiccation. No herniation, protrusion or disc bulging. No ca nal stenosis is present. Foramina are patent bilaterally. L5-S1: Normal disc appearance without desiccation. No herniation, protrusion or disc bulging. No ca nal stenosis is present. Foramina are patent bilaterally. Facet arthropathy changes again noted. Lumbar segments are intact. No paraspinal masses are identified. Conus medullaris has a normal appe arance. Is a spinal curvature. IMPRESSION: There is a spinal curvature. Mild facet arthropathy L5-S1.
== END | disposition home or self-care (01) ==
LOC: RADMRIMAIN 10:49
PROVIDERS: ATTEND Family Medicine
DX: M12.88 Other specific arthropathies, not elsewhere classified, other specified site (principal)
CPT/HCPCS: 72148

== ENCOUNTER → 2021-12-30 | Outpatient (CLI) | payer OTHER ==
[2021-12-30 18:50] LABS: Basophils % (A) 0.7 %; Eosinophils # (A) 0.28 X 10*3/uL (0.04-0.35); Eosinophils % (A) 2.1 %; HGB 14.8 g/dL (12.0-15.0); Immature Grans, Automated 0.6 %; Lymphocytes # (A) 2.95 X 10*3/uL (0.90-5.00); Lymphocytes % (A) 21.6 %; MCH 30.3 pg (27.0-32.0); MCHC 32.2 g/dL (32.0-37.0); MCV 94.1 fL (80.0-97.0); Mean Platelet Volume 10.4 fL (9.5-12.2); Monocytes # (A) 0.72 X 10*3/uL (0.20-1.00); Monocytes % (A) 5.3 %; NRBC Per 100 WBC 0 /100 WBCS (0.0-0.0); Neutrophils # (A) 9.51 X 10*3/uL (1.80-7.70); Neutrophils % (A) 69.7 %; Platelet Count 311 X 10*3/uL (140-440); RBC 4.89 X 10*6/uL (4.10-5.20); RDW 13.2 % (11.5-14.5); WBC 13.64 X 10*3/uL (4.50-10.00)
[2021-12-30 18:58] LABS: ALT 19 U/L (8-44); AST 18 U/L (13-35); African American GFR (CKD) 123.9 (60.0-200.0); Albumin 4.3 g/dL (3.8-4.9); Albumin/Globulin Ratio 1.59 (1.60-3.17); Alkaline Phosphatase 106 U/L (41-126); Calcium 9.5 mg/dL (8.7-10.3); Carbon Dioxide 24.9 mmol/L (20.0-27.5); Chloride 101 mmol/L (96-109); Chol/HDL Ratio 5.26 Ratio; Globulin 2.7 g/dL (1.6-3.3); Glucose 109 mg/dL (70-110); LDL Cholesterol,Calculated 129.6 mg/dL (0.0-131.0); Non-African American GFR(CKD) 106.9 (60.0-200.0); Potassium 4.4 mmol/L (3.5-5.5); Sodium 138 mmol/L (135-145); Total Bilirubin <0.15 mg/dL (0.30-1.20)
== END | disposition home or self-care (01) ==
LOC: LABWHC1 12:17
PROVIDERS: ATTEND Family Medicine
DX: E10.40 Type 1 diabetes mellitus with diabetic neuropathy, unspecified (principal)
CPT/HCPCS: 36415; 80053; 80061; 83036; 85025

== ENCOUNTER → 2022-02-16 | Outpatient (CLI) | payer OTHER ==
[2022-02-16 10:03] VITALS: BP 165/94; PULSE 85; RESP 18; TEMP 98.4
--- NOTE | 2022-02-16 10:37 | P.PAINPG ---
PQRS Measure Charge Sheet Comment: HISTORY OF PRESENT ILLNESS: 41 yr old female as a referral from Dr Blue presents today w severe and chronic R LBP secondary to scoliosis, DDD and facet arthropathy without myelopathy for evaluation. Pt states her pain level is at 7/10 in intensity w sitting for periods of 10 min or more, localized in the R lower back where it meets the tailbone, burning/ sharp in character w shooting towards the R groin. Pain is alleviated w medications (tramadol, ibuprofen), topicals, patches, heat, PT 6 weeks in April 2021, daily home stretching regimen, repositioning and rest. PMH: Diabetes Mellitus, Hyperlipidemia, HTN PSH: Adenoidectomy, Section, Tonsillectomy SH: Daily tobacco use, no ETOH abuse, no illicit drug use FH: Mo- CA All: NKDA Meds: See list REVIEW OF ORGAN SYSTEMS: CONSTITUTIONAL: No fevers or chills. No recent weight loss. NEUROLOGICAL: + numbness and tingling along the distal extremities. No seizure disorders or headaches. MUSCULOSKELETAL: + pain PSYCHIATRIC: Denies current depression or suicidal thoughts. Physical Examinations : Constitutional : Cooperative , not in acute distress . Neurologic : Cranial nerve II to XII intact. No focal neurological deficits. Psychiatric : alert & oriented x 3. Matching mood & appropriate affect. Judgment & insight intact. Musculoskeletal : Cervical Spine Motor strength in the deltoid and biceps: Normal right side. Normal Left side Motor strength biceps and the wrist extensors: Normal right side . Normal left side Motor strength in the triceps muscle: Normal right side. Normal left side Deep tendon reflexes: Normal at the biceps. Normal at Brachioradialis. Normal at triceps Vertebral body tenderness to deep palpation over Cervical facet loading test: positive bilaterally Spurling test: positive bilaterally Neck distraction test: positive bilaterally Paul sign: positive bilaterally Lumbar spine Motor strength lower extremities ,thigh and legs 5/5 Right side , 5/5 Left side Deep tendon reflexes : Normal Knee Jerk. Normal Ankle Jerk Vertebral body tenderness over Lumbar facet Loading Test: positive Right / positive Left Range of motion of the lumbar spine Flexion 30 degrees, extension 10 degrees Straight Leg Raise test: Left/ Right positive at degree Natalia test: positive right / positive left. Severe tenderness over the Sacroiliac joint on the Right / Left sides Gaenslen test: positive bilaterally Seated flexion test: positive bilaterally. Sacral spine : Severe tenderness over the Sacroiliac joint: right side / left side Range of motion: Flexion of the lumbar spine <60 degrees Range of motion: Extension of the lumbar spine <20 degrees Gaenslen's Test positive on R Natalia test: positive right side / left side Thigh Thrust Test R Sacral Thrust Test Imaging: CT scan without contrast of the lumbar spine reviewed Assessment/ Plan : Lumbar scoliosis, lumbar DDD, right sacroiliitis Recommendation of R SI joint injection. May need a series of injections, up to 4 within 12 months timeframe, for optimal pain relief. Risks, benefits of procedure discussed and patient verbalized understanding. Admits to aspirin or anti- coagulant use or medical history of diabetes. Protocol for discontinuation/ continuation of medications sd procedure discussed. All questions answered. I have spent greater than 30 minutes on patient care today. Dr Turner was available by phone for the evaluation of this patient. The time was used to review the medical records including relevant urine studies and Prescription history (MAPs), review of the available imaging, evaluation and examination of the patient, coordination of care with the medical staff and if applicable referring physicians, as well as creation of the medical record Home Medications: Ambulatory Orders INSULIN LISPRO (humaLOG) [humaLOG] 3 units SQ DIRECTED 10/31/19 Ibuprofen [Motrin] 800 mg PO Q8H PRN 10/31/19 Insulin Glargine,Hum.rec.anlog [Basaglar Kwikpen U-100] 14 unit SQ HS 10/31/19 Insulin Glargine,Hum.rec.anlog [Basaglar Kwikpen U-100] 20 unit SQ QAM 10/31/19 Meloxicam [Mobic] 7.5 mg PO DAILY 10/31/19 Metoprolol Tartrate [Lopressor] 25 mg PO BID 10/31/19 Simvastatin [Zocor] 20 mg PO DAILY 10/31/19 lisinopriL 20 mg PO HS 10/31/19 traMADol HCL [Ultram] 50 mg PO HS PRN 10/31/19 HYDROcodone/APAP 7.5-325MG [[place] 7.5] 1 each PO Q6HR PRN #15 tab 12/09/19 Cephalexin [Keflex] 500 mg PO Q6HR #28 cap 03/13/20 HYDROcodone/APAP 7.5-325MG [[place] 7.5-325] 1 tab PO Q6HR PRN 3 Days #12 tab 07/19/20 predniSONE 50 mg PO DAILY #5 tab 07/19/20 HYDROcodone/APAP 5-325MG [[place] 5-325] 1 tab PO Q6HR PRN 3 Days #12 tab 07/29/20 Controlled Substance Measures - Controlled Substance Measures Is patient prescribed a controlled substance at discharge?: No
== END ==
LOC: PNWHC3 08:41
PROVIDERS: ATTEND Specialist
DX: M46.1 Sacroiliitis, not elsewhere classified (principal); M51.36 Other intervertebral disc degeneration, lumbar region; E11.9 Type 2 diabetes mellitus without complications; E78.5 Hyperlipidemia, unspecified; I10 Essential (primary) hypertension; Z79.4 Long term (current) use of insulin; Z79.899 Other long term (current) drug therapy
CPT/HCPCS: 99211

== ENCOUNTER → 2022-02-18 | Outpatient (CLI) | payer OTHER ==
--- NOTE | 2022-02-21 11:08 | MR ---
EXAMINATION TYPE: MR lumbar spine wo con DATE OF EXAM: 02/18/2022 COMPARISON: MRI lumbar spine September 01, 2020 HISTORY: Low back pain that radiates down right leg, left leg is cold and numb. Low back pain and sac roiliitis. TECHNIQUE: Multiplanar, multisequence imaging of the lumbar spine is performed without IV contrast. FINDINGS: Sagittal images of the lumbar spine show vertebral body heights and alignment to remain sta ble and satisfactory. The intervertebral discs redemonstrate normal heights and hydration. The conus medullaris is stable in position and low lying at L2-L3 disc space level. No abnormal signal is seen . No suspicious clumping of the lumbosacral nerve roots. No significant change from prior. Vague Osse ous hemangioma involving the L2 vertebra sagittal image 7 is redemonstrated. Mild facet arthropathy L4-L5 and L5-S1 levels redemonstrated and on axial images. Spinal canal remain s preserved. No new disc herniation is seen. Paraspinal muscle bulk is maintained. IMPRESSION: Mild facet arthropathy in the lower lumbar spine is redemonstrated. No significant change from prior MRI.
== END | disposition home or self-care (01) ==
LOC: RADMRIMAIN 20:45
PROVIDERS: ATTEND Orthopaedic Surgery
DX: M47.816 Spondylosis without myelopathy or radiculopathy, lumbar region (principal); M46.1 Sacroiliitis, not elsewhere classified
CPT/HCPCS: 72148

== ENCOUNTER → 2022-02-27 | Outpatient (CLI) | payer OTHER ==
--- NOTE | 2022-02-28 01:32 | MR ---
EXAMINATION TYPE: MR knee RT wo con DATE OF EXAM: 02/27/2022 COMPARISON: None HISTORY: Rt knee pain Multiplanar multiecho imaging of the right knee performed with no contrast. There is a moderate knee joint effusion. The anterior and posterior cruciate ligaments are intact. Th ere is some mild increased signal in the inferior posterior aspect of the medial horn medial meniscus consistent with a partial tear. The collateral ligaments are intact. No evidence of a fracture. Jean-Baptiste lla is intact. No evidence of bone edema. IMPRESSION: There is a small tear in the posterior horn of the medial meniscus on the inferior surface. No evidence of ligamentous tear. Knee joint effusion.
== END | disposition home or self-care (01) ==
LOC: RADMRIMAIN 11:30
PROVIDERS: ATTEND Orthopaedic Surgery
DX: M23.321 Other meniscus derangements, posterior horn of medial meniscus, right knee (principal); M25.561 Pain in right knee

== ENCOUNTER 2022-03-31 06:23 | Day surgery (SDC) | payer OTHER ==
[2022-03-29 09:59] VITALS: BMI 32.9
[~2022-03-31 06:23] MED LIST changes: +LIDOCAINE 1% (10MG/ML) FOR IV START INTRADERMA PRN; -Pre Op ABX Message 1 EACH MISC MISCELLANE ONE
[2022-03-31 06:56] VITALS: RESP 16; TEMP 97.4
[2022-03-31 07:07] LABS: Glucose,Whole Blood 274 mg/dL (70-110)
[2022-03-31] MEDS ORDERED: fentaNYL (PF) 50 MCG/ML 2 ML AMP ONE (07:34)
[2022-03-31] MEDS ORDERED: MIDAZOLAM 2 MG/2 ML VIAL ONE (07:34)
[2022-03-31] MEDS ORDERED: methylPREDNISolone ACETATE 40 MG/ML 1 ML VIAL ONE (07:34)
[2022-03-31] MEDS ORDERED: ROPIVACAINE 5 MG/ML 20 ML AMPULE ONE (07:34)
--- NOTE | 2022-03-31 07:46 | P.PCN ---
Date of Procedure: 03/31/22 Procedure(s) Performed: Procedure= Right sacroiliac joints steroid injection under fluoroscopy guidance (fluoroscopy image stored on file in the radiology Department ) Preoperative diagnosis= 1- right sacroiliitis 2-sacroiliac joint dysfunction 3-lumbar facet arthropathy Postoperative diagnosis=Same as preop Diagnosis . Complication = none Condition= stable Anesthesia= moderate sedation with intravenous Versed 2 mg , and fentanyl 50 micrograms . Sedation start time: 07:37 Sedation end time : 07: 42 Indication for the procedure= patient complaining of low back pain , examination was positive for severe tenderness over the sacroiliac joints bilaterally and patient diagnosed with sacroiliitis, for this reason, she was good candidate for sacroiliac joint steroid injection. Description of the procedure= procedure risk and benefits discussed with the patient, including but not limited, risk of infection and bleeding, and ALLERGIC reaction to the medication and not complete pain relief and patient agreed with the preceding patient taken to the operating room, placed in prone position or standard monitors applied to the patient then after induction of anesthesia back prepped with chlorhexidine 3 times , Then under strict sterile technique, I did the right sacroiliac joint the which was identified under fluoroscopy guidance been local infiltration of the skin and subcu interstitial with lidocaine 1% then 22-gauge Quincke Needle advanced s lowly under fluoroscopy and placed in the right sacroiliac joint needle placement confirmed with AP and oblique and lateral view and after appropriate needle placement confirmed and after negative aspiration, or heme , then Ropivacaine 0.5% 4 mL, and 40 mg of Depo-Medrol mixed together and injected in the right sacroiliac joint after negative aspiration patient tolerated the procedure well without any complication.
[2022-03-31 08:07] LABS: Glucose,Whole Blood 246 mg/dL (70-110)
[2022-03-31] MEDS ORDERED: IV FLUID CONTINUATION 1,000 ML IV ONE (08:18)
[2022-03-31 08:22] VITALS: BP 140/80; PULSE 78
--- NOTE | 2022-03-31 08:25 | FL ---
Fluoroscopy History: SI Inj 9sec fluoro time...1 image to PACS.
== END 2022-03-31 08:28 | disposition home or self-care (01) ==
LOC: ORPAIN 06:23
PROVIDERS: ATTEND Specialist
DX: M46.1 Sacroiliitis, not elsewhere classified (principal); M47.816 Spondylosis without myelopathy or radiculopathy, lumbar region; Z88.8 Allergy status to other drugs, medicaments and biological substances
CPT/HCPCS: 81025; J2250; J1030; J3010; J2795; G0260; 27096

== ENCOUNTER → 2022-05-05 | Outpatient (CLI) | payer OTHER ==
[2022-05-05 19:25] LABS: Basophils # (A) 0.07 X 10*3/uL (0.00-0.10); Basophils % (A) 0.6 %; Eosinophils # (A) 0.14 X 10*3/uL (0.04-0.35); Eosinophils % (A) 1.1 %; HCT 46.9 % (37.2-46.3); HGB 14.7 g/dL (12.0-15.0); Immature Grans, Automated 0.4 %; Lymphocytes # (A) 2.03 X 10*3/uL (0.90-5.00); Lymphocytes % (A) 16.6 %; MCHC 31.3 g/dL (32.0-37.0); MCV 95.7 fL (80.0-97.0); Mean Platelet Volume 10.1 fL (9.5-12.2); Monocytes # (A) 0.47 X 10*3/uL (0.20-1.00); Monocytes % (A) 3.8 %; NRBC Per 100 WBC 0 /100 WBCS (0.0-0.0); Neutrophils # (A) 9.45 X 10*3/uL (1.80-7.70); Neutrophils % (A) 77.5 %; Platelet Count 309 X 10*3/uL (140-440); RDW 13.2 % (11.5-14.5); WBC 12.21 X 10*3/uL (4.50-10.00)
[2022-05-05 19:59] LABS: ALT 21 U/L (8-44); AST 16 U/L (13-35); African American GFR (CKD) 128.2 (60.0-200.0); Albumin 4.5 g/dL (3.8-4.9); Albumin/Globulin Ratio 1.93 (1.60-3.17); Alkaline Phosphatase 118 U/L (41-126); Blood Urea Nitrogen 11.8 mg/dL (9.0-27.0); Calcium 9.6 mg/dL (8.7-10.3); Carbon Dioxide 23.5 mmol/L (20.0-27.5); Chloride 102 mmol/L (96-109); Chol/HDL Ratio 4.98 Ratio; Globulin 2.4 g/dL (1.6-3.3); Glucose 129 mg/dL (70-110); LDL Cholesterol,Calculated 180.6 mg/dL (0.0-131.0); Non-African American GFR(CKD) 110.6 (60.0-200.0); Potassium 4.2 mmol/L (3.5-5.5); Sodium 139 mmol/L (135-145); Total Protein 6.9 g/dL (6.2-8.2)
== END | disposition home or self-care (01) ==
LOC: LABWHC1 13:45
PROVIDERS: ATTEND Family Medicine
DX: E10.9 Type 1 diabetes mellitus without complications (principal)
CPT/HCPCS: 36415; 80053; 80061; 83036; 84439; 84443; 85025

== ENCOUNTER 2022-07-08 06:12 | Day surgery (SDC) | payer OTHER ==
[2022-07-05 11:29] VITALS: BMI 31.1
[2022-07-08 06:56] VITALS: TEMP 97
[2022-07-08] MEDS ORDERED: ONDANSETRON 4 MG/2 ML VIAL IVP PRN (07:00)
[2022-07-08 07:05] LABS: Glucose,Whole Blood 311 mg/dL (70-110)
[2022-07-08] MEDS ORDERED: INSULIN ASPART (NovoLOG) 100 UNIT/ML VIAL SQ ONE (07:10)
[2022-07-08] MEDS ORDERED: LIDOCAINE 2% INJ 20 MG/ML (2 ML VIAL) ONE (07:59)
[2022-07-08] MEDS ORDERED: PROPOFOL 10 MG/ML 20 ML VIAL IV ONE (07:59)
--- NOTE | 2022-07-08 08:25 | P.PCN ---
Date of Procedure: 07/08/22 Procedure(s) Performed: BRIEF HISTORY: Patient is a 41-year-old pleasant white female scheduled for an elective colonoscopy as a part of evaluation of change in bowel habits. She has strong family history of colon cancer diagnosed in her father at age 60 and paternal grandfather at age 65. PROCEDURE PERFORMED: Colonoscopy with snare polypectomy. PREOPERATIVE DIAGNOSIS: Change in bowel habits and family history of colon cancer. IV sedation per Anesthesia. PROCEDURE: After informed consent was obtained, the patient, was brought into the endoscopy unit. IV sedation was administered by Anesthesia under continuous monitoring. Digital rectal examination was normal. Initially the Olympus CF-160 flexible video colonoscope was then inserted in the rectum, gradually advanced into the cecum without any difficulty. Careful examination was performed as the scope was gradually being withdrawn. Ileocecal valve and the appendiceal orifice were visualized and appeared normal. Prep was fair.. Mucosa of the cecum, ascending colon, transverse colon, descending colon, sigmoid colon, and rectum appeared normal. Retroflexion was performed in the rectum and no lesions were seen. The patient tolerated the procedure well. IMPRESSION: 5 mm; polyp status post polypectomy Rest of the colon appeared normal RECOMMENDATIONS: Findings of this examination were discussed with the patient as his family. She was advised to follow with the biopsy results and have a repeat colonoscopy in 5 years because of the strong family history of colon cancer.
[2022-07-08 08:38] LABS: Glucose,Whole Blood 290 mg/dL (70-110)
[2022-07-08 09:00] VITALS: BP 130/80; PULSE 71; RESP 16
== END 2022-07-08 09:12 | disposition home or self-care (01) ==
LOC: ORWHC2ENDO 06:12
PROVIDERS: ATTEND Internal Medicine Gastroenterology
DX: D12.5 Benign neoplasm of sigmoid colon (principal); Z80.0 Family history of malignant neoplasm of digestive organs; I10 Essential (primary) hypertension; E78.5 Hyperlipidemia, unspecified; I34.1 Nonrheumatic mitral (valve) prolapse; F17.200 Nicotine dependence, unspecified, uncomplicated; E11.9 Type 2 diabetes mellitus without complications; Z79.4 Long term (current) use of insulin; Z79.899 Other long term (current) drug therapy
CPT/HCPCS: 81025; 88305; 45385; J2704; J2001

== ENCOUNTER → 2022-10-03 | Outpatient (CLI) | payer OTHER ==
[2022-10-03 16:45] LABS: Basophils # (A) 0.08 X 10*3/uL (0.00-0.10); Basophils % (A) 0.7 %; Eosinophils # (A) 0.16 X 10*3/uL (0.04-0.35); Eosinophils % (A) 1.3 %; HCT 48.5 % (37.2-46.3); HGB 15.5 d/dL (12.0-15.0); Lymphocytes % (A) 17.5 %; MCH 30.4 pg (27.0-32.0); MCV 95.1 FL (80.0-97.0); Mean Platelet Volume 10.7 FL (9.5-12.2); Monocytes # (A) 0.41 X 10*3/uL (0.20-1.00); Monocytes % (A) 3.4 %; NRBC Per 100 WBC 0 X 10*3/uL (0.00-0.01); Neutrophils # (A) 9.17 X 10*3/uL (1.80-7.70); Neutrophils % (A) 76.7 %; Platelet Count 369 X 10*3/uL (140-440); RDW 13.3 % (11.5-14.5); WBC 11.97 X 10*3/uL (4.50-10.00)
== END | disposition home or self-care (01) ==
LOC: LABWHC1 12:11
PROVIDERS: ATTEND Family Medicine
DX: E10.42 Type 1 diabetes mellitus with diabetic polyneuropathy (principal)
CPT/HCPCS: 36415; 83036; 85025

== ENCOUNTER → 2022-10-03 | Outpatient (CLI) | payer OTHER ==
--- NOTE | 2022-10-03 12:12 | XR ---
EXAMINATION TYPE: XR cervical spine comp DATE OF EXAM: 10/03/2022 12:06 PM INDICATION: Patient age:Female; 41 years old; Reason for study: M54.2; [facility]. COMPARISON: None TECHNIQUE: The cervical spine was imaged in frontal, lateral, odontoid, and bilateral oblique project ions. FINDINGS: The osseous structures show normal alignment without evidence of an acute fracture. The intervertebra l disk spaces are preserved. Pedicles are intact. Soft tissues are within normal limits. The odonto id appears intact. IMPRESSION: No fracture or dislocation.
== END | disposition home or self-care (01) ==
LOC: RADXRMAIN 11:44
PROVIDERS: ATTEND Family Medicine
DX: M54.2 Cervicalgia (principal)
CPT/HCPCS: 72050

== ENCOUNTER 2022-10-13 16:06 | Emergency (ER) | payer OTHER ==
[2022-10-13 16:19] VITALS: TEMP 98.1
--- NOTE | 2022-10-13 18:18 | ED ---
General Adult HPI - General Source: patient Mode of arrival: ambulatory Limitations: no limitations <Camila Paz - Last Filed: 10/13/22 18:22> <Santana Crump - Last Filed: 10/13/22 23:01> - General Chief complaint: Abdominal Pain Stated complaint: Abd pain/blood in stool - History of Present Illness Initial comments: 41-year-old female presents to the emergency department for chief complaint of blood in stool. She states that she has been having diarrhea since 11am this morning. She reports abdominal cramping throughout the mid-abdomen followed by diarrhea. She states that she gets relief from the cramping following a bowel movement. She reports that the pain comes back about 10 minutes later. PMH includes T1DM, gastroparesis, htn, hld. (Camila Paz) 7-year-old female presents to ED with a chief complaint of abdominal pain. Patient states since 10 has had constant diarrhea with blood and mucus with associated abdominal pain. Patient states pain is 10/10 in severity. Has not taken anything yet for pain. Notes urinary frequency with history of type 1 diabetes however denies dysuria hematuria. Denies vaginal bleeding. No recent travel. No suspicious food intake. Denies chest pain or shortness breath. No other complaints. (Santana Crump) - Related Data Home Medications Medication Instructions Recorded Confirmed INSULIN LISPRO (humaLOG) [humaLOG] See Protocol SQ ACHS PRN 10/31/19 10/13/22 Ibuprofen [Motrin] 800 mg PO Q8H PRN 10/31/19 10/13/22 Metoprolol Tartrate [Lopressor] 25 mg PO BID 10/31/19 10/13/22 Diclofenac Sodium Gel [Voltaren 1 applic TOPICAL DAILY PRN 03/29/22 10/13/22 Gel] Rosuvastatin [Crestor] 10 mg PO DAILY 03/29/22 10/13/22 Albuterol Inhaler [Ventolin Hfa 2 puff INHALATION RT-Q6H PRN 10/13/22 10/13/22 Inhaler] Amoxic-Pot Clav 875-125Mg 1 tab PO Q12HR 10/13/22 10/13/22 [Augmentin 875-125] Insulin Detemir [Levemir Flexpen] 42 units SQ DAILY 10/13/22 10/13/22 lisinopriL [Zestril] 2.5 mg PO DAILY 10/13/22 10/13/22 Allergies Allergy/AdvReac Type Severity Reaction Status Date / Time marijuana (cannabis) AdvReac Itching Verified 10/13/22 19:56 Review of Systems ROS Other: All systems not noted in ROS Statement are negative. <Camila Paz - Last Filed: 10/13/22 18:22> ROS Other: All systems not noted in ROS Statement are negative. <Santana Crump - Last Filed: 10/13/22 23:01> ROS Statement: Those systems with pertinent positive or pertinent negative responses have been documented in the HPI. Past Medical History Past Medical History: Diabetes Mellitus, Hyperlipidemia, Hypertension, Osteoarthritis (OA) Additional Past Medical History / Comment(s): MITRAL VALVE PROLAPSE , TYPE 1 DIABETIC, BONE SPUR LEFT SHOULDER, NEUROPATHY HANDS AND FEET, HAVING DIGESTIVE ISSUES-BLOATING AND CONSTIPATION History of Any Multi-Drug Resistant Organisms: None Reported Past Surgical History: Section, Uterine Ablation Additional Past Surgical History / Comment(s): C SECTION X2 , PAIN CLINIC PROCEDURES IN THE PAST Past Anesthesia/Blood Transfusion Reactions: No Reported Reaction Past Psychological History: No Psychological Hx Reported Smoking Status: Current every day smoker Past Alcohol Use History: None Reported Past Drug Use History: None Reported - Past Family History Mother Family Medical History: Cancer <Camila Paz - Last Filed: 10/13/22 18:22> General Exam Limitations: no limitations <Camila Paz - Last Filed: 10/13/22 18:22> General appearance: alert, in distress ENT exam: Present: mucous membranes moist Respiratory exam: Present: normal lung sounds bilaterally Cardiovascular Exam: Present: regular rate, normal rhythm GI/Abdominal exam: Present: soft, tenderness (Diffuse abdominal tenderness to palpation worse in the lower abdomen. Active bowel sounds), guarding Rectal exam: Present: normal rectal tone Neurological exam: Present: alert, oriented X3 <Santana Crump - Last Filed: 10/13/22 23:01> - General Exam Comments Initial Comments: Visual Physical Exam Vital signs reviewed General: Well-appearing, nontoxic, no acute distress. Head: Normocephalic, atraumatic Eyes: PERRLA, EOMI ENT: Airway patent Chest: Nonlabored breathing Skin: No visual rash, normal skin tone Neuro: Alert and oriented 3 Musculoskeletal: No gross abnormalities (Camila Paz) Course <Santana Crump - Last Filed: 10/13/22 23:01> Vital Signs 10/13/22 10/13/22 16:17 19:45 Temperature 98.1 F Pulse Rate 101 H 86 Respiratory 24 16 Rate Blood Pressure 154/81 135/98 O2 Sat by Pulse 100 98 Oximetry - Reevaluation(s) Reevaluation #1: Patient reevaluated. After IV morphine states pain significantly improved 10/13/22 20:11 (Santana Crump) Medical Decision Making - Lab Data Result diagrams: 10/13/22 19:05 10/13/22 19:05 <Santana Crump - Last Filed: 10/13/22 23:01> - Medical Decision Making Was pt. sent in by a medical professional or institution (, PA, HIGHWAY TRAFFIC CONTROL TECHNICIAN, urgent care, hospital, or fci...) When possible be specific @ -No Did you speak to anyone other than the patient for history (EMS, parent, family, police, friend...)? What history was obtained from this source @ -No Did you review nursing and triage notes (agree or disagree)? Why? @ -I reviewed and agree with nursing and triage notes Were old charts reviewed (outside hosp., previous admission, EMS record, old EKG, old radiological studies, urgent care reports/EKG's, fci records)? Report findings @ -No old charts were reviewed Differential Diagnosis (chest pain, altered mental status, abdominal pain women, abdominal pain men, vaginal bleeding, weakness, fever, dyspnea, syncope, headache, dizziness, GI bleed, back pain, seizure, CVA, palpatations, mental health, musculoskeletal)? @ -Differential Abdominal Pain Women: Appendicitis, Cholecystitis, diverticulosis, ischemic bowel, pancreatitis, hepatitis, UTI, gastroenteritis, AAA, incarcerated hernia, bowel obstruction, constipation, inflammatory bowel, hepatitis, peptic ulcer disease, splenic infarction, perforated viscus, vulvitis, ovarian torsion, PID, kidney stone, placenta abruption, this is not meant to be an all-inclusive list EKG interpreted by me (3pts min.). @ -None X-rays interpreted by me (1pt min.). @ -None done CT interpreted by me (1pt min.). @ -CT showed findings consistent with colitis. U/S interpreted by me (1pt. min.). @ -None done What testing was considered but not performed or refused? (CT, X-rays, U/S, labs)? Why? @ -None What meds were considered but not given or refused? Why? @ -None Did you discuss the management of the patient with other professionals (professionals i.e. , PA, HIGHWAY TRAFFIC CONTROL TECHNICIAN, lab, RT, psych nurse, social psychologist, quality inspector, teacher, aboriginal home school liaison officer, case management assistant)? Give summary @ -No Was smoking cessation discussed for >3mins.? @ -No Was critical care preformed (if so, how long)? @ -No Were there social determinants of health that impacted care today? How? (Homelessness, low income, unemployed, alcoholism, drug addiction, trans portation, low edu. Level, literacy, decrease access to med. care, longterm, rehab)? @ -No Was there de-escalation of care discussed even if they declined (Discuss DNR or withdrawal of care, Hospice)? DNR status @ -No What co-morbidities impacted this encounter? (DM, HTN, Smoking, COPD, CAD, Cancer, CVA, ARF, Chemo, Hep., AIDS, mental health diagnosis, sleep apnea, morbid obesity)? @ -None Was patient admitted / discharged? Hospital course, mention meds given and route, prescriptions, significant lab abnormalities, going to OR and other pertinent info. @ -Discharge. Labs that showed a white count of 20. CT findings consistent with colitis. At this time patient will controlled. Patient afebrile. Patient will be discharged home with follow-up to gastroenterology. Discharged in stable condition. Discussed return precautions with patient who verbalizes ag reement. Undiagnosed new problem with uncertain prognosis? @ -No Drug Therapy requiring intensive monitoring for toxicity (Heparin, Nitro, Insu keke, Cardizem)? @ -No Were any procedures done? @ -No Diagnosis/symptom? @ -Colitis Acute, or Chronic, or Acute on Chronic? @ -Acute Uncomplicated (without systemic symptoms) or Complicated (systemic symptoms)? @ -Uncomplicated Side effects of treatment? @ -No Exacerbation, Progression, or Severe Exacerbation? @ -No Poses a threat to life or bodily function? How? (Chest pain, [place], [place], pneumonia, PE, COPD, DKA, ARF, appy, cholecystitis, CVA, Diverticulitis, Homicidal, Suicidal, threat to staff... and all critical care pts) @ -No (Santana Crump) - Lab Data Lab Results 10/13/22 10/13/22 10/13/22 Range/Units 19:00 19:05 19:05 WBC 20.3 H (3.8-10.6) k/uL RBC 5.34 (3.80-5.40) m/uL Hgb 15.9 (11.4-16.0) gm/dL Hct 49.7 H (34.0-46.0) % MCV 93.0 (80.0-100.0) fL MCH 29.8 (25.0-35.0) pg MCHC 32.0 (31.0-37.0) g/dL RDW 13.2 (11.5-15.5) % Plt Count 341 (150-450) k/uL MPV 7.7 Neutrophils % 83 % Lymphocytes % 10 % Monocytes % 4 % Eosinophils % 2 % Basophils % 0 % Neutrophils # 16.7 H (1.3-7.7) k/uL Lymphocytes # 2.1 (1.0-4.8) k/uL Monocytes # 0.8 (0-1.0) k/uL Eosinophils # 0.5 (0-0.7) k/uL Basophils # 0.0 (0-0.2) k/uL PT 10.1 (9.0-12.0) sec INR 0.9 (<1.2) APTT 23.7 (22.0-30.0) sec Sodium (137-145) mmol/L Potassium (3.5-5.1) mmol/L Chloride (98-107) mmol/L Carbon Dioxide (22-30) mmol/L Anion Gap mmol/L BUN (7-17) mg/dL Creatinine (0.52-1.04) mg/dL Est GFR (CKD-EPI)AfAm (>60 ml/min/1.73 sqM) Est GFR (CKD-EPI)NonAf (>60 ml/min/1.73 sqM) Glucose (74-99) mg/dL Plasma Lactic Acid Luis (0.7-2.0) mmol/L Calcium (8.4-10.2) mg/dL Magnesium (1.6-2.3) mg/dL Total Bilirubin (0.2-1.3) mg/dL AST (14-36) U/L ALT (4-34) U/L Alkaline Phosphatase (38-126) U/L Total Protein (6.3-8.2) g/dL Albumin (3.5-5.0) g/dL Amylase (30-110) U/L Lipase (23-300) U/L Urine Color Urine Appearance (Clear) Urine pH (5.0-8.0) Ur Specific [place] (1.001-1.035) Urine Protein (Negative) Urine Glucose (UA) (Negative) Urine Ketones (Negative) Urine Blood (Negative) Urine Nitrite (Negative) Urine Bilirubin (Negative) Urine Urobilinogen (<2.0) mg/dL Ur Leukocyte Esterase (Negative) Urine HCG, Qual (Not Detectd) Stool Occult Blood (Negative) Blood Type A Positive Blood Type Recheck A Pos Bld Type Recheck Status No Antibody Screen NEGATIVE Spec Expiration Date 10/16/2022 - 229910/13/22 10/13/22 10/13/22 Range/Units 19:05 19:05 19:05 WBC (3.8-10.6) k/uL RBC (3.80-5.40) m/uL Hgb (11.4-16.0) gm/dL Hct (34.0-46.0) % MCV (80.0-100.0) fL MCH (25.0-35.0) pg MCHC (31.0-37.0) g/dL RDW (11.5-15.5) % Plt Count (150-450) k/uL MPV Neutrophils % % Lymphocytes % % Monocytes % % Eosinophils % % Basophils % % Neutrophils # (1.3-7.7) k/uL Lymphocytes # (1.0-4.8) k/uL Monocytes # (0-1.0) k/uL Eosinophils # (0-0.7) k/uL Basophils # (0-0.2) k/uL PT (9.0-12.0) sec INR (<1.2) APTT (22.0-30.0) sec Sodium 138 (137-145) mmol/L Potassium 4.1 (3.5-5.1) mmol/L Chloride 107 (98-107) mmol/L Carbon Dioxide 23 (22-30) mmol/L Anion Gap 8 mmol/L BUN 13 (7-17) mg/dL Creatinine 0.67 (0.52-1.04) mg/dL Est GFR (CKD-EPI)AfAm >90 (>60 ml/min/1.73 sqM) Est GFR (CKD-EPI)NonAf >90 (>60 ml/min/1.73 sqM) Glucose 171 H (74-99) mg/dL Plasma Lactic Acid Luis 1.3 (0.7-2.0) mmol/L Calcium 9.5 (8.4-10.2) mg/dL Magnesium 1.8 (1.6-2.3) mg/dL Total Bilirubin 0.4 (0.2-1.3) mg/dL AST 21 (14-36) U/L ALT 18 (4-34) U/L Alkaline Phosphatase 110 (38-126) U/L Total Protein 6.8 (6.3-8.2) g/dL Albumin 4.1 (3.5-5.0) g/dL Amylase 38 (30-110) U/L Lipase 84 (23-300) U/L Urine Color Urine Appearance (Clear) Urine pH (5.0-8.0) Ur Specific [place] (1.001-1.035) Urine Protein (Negative) Urine Glucose (UA) (Negative) Urine Ketones (Negative) Urine Blood (Negative) Urine Nitrite (Negative) Urine Bilirubin (Negative) Urine Urobilinogen (<2.0) mg/dL Ur Leukocyte Esterase (Negative) Urine HCG, Qual (Not Detectd) Stool Occult Blood Positive H (Negative) Blood Type Blood Type Recheck Bld Type Recheck Status Antibody Screen Spec Expiration Date 10/13/22 10/13/22 Range/Units 20:25 20:25 WBC (3.8-10.6) k/uL RBC (3.80-5.40) m/uL Hgb (11.4-16.0) gm/dL Hct (34.0-46.0) % MCV (80.0-100.0) fL MCH (25.0-35.0) pg MCHC (31.0-37.0) g/dL RDW (11.5-15.5) % Plt Count (150-450) k/uL MPV Neutrophils % % Lymphocytes % % Monocytes % % Eosinophils % % Basophils % % Neutrophils # (1.3-7.7) k/uL Lymphocytes # (1.0-4.8) k/uL Monocytes # (0-1.0) k/uL Eosinophils # (0-0.7) k/uL Basophils # (0-0.2) k/uL PT (9.0-12.0) sec INR (<1.2) APTT (22.0-30.0) sec Sodium (137-145) mmol/L Potassium (3.5-5.1) mmol/L Chloride (98-107) mmol/L Carbon Dioxide (22-30) mmol/L Anion Gap mmol/L BUN (7-17) mg/dL Creatinine (0.52-1.04) mg/dL Est GFR (CKD-EPI)AfAm (>60 ml/min/1.73 sqM) Est GFR (CKD-EPI)NonAf (>60 ml/min/1.73 sqM) Glucose (74-99) mg/dL Plasma Lactic Acid Luis (0.7-2.0) mmol/L Calcium (8.4-10.2) mg/dL Magnesium (1.6-2.3) mg/dL Total Bilirubin (0.2-1.3) mg/dL AST (14-36) U/L ALT (4-34) U/L Alkaline Phosphatase (38-126) U/L Total Protein (6.3-8.2) g/dL Albumin (3.5-5.0) g/dL Amylase (30-110) U/L Lipase (23-300) U/L Urine Color Yellow Urine Appearance Clear (Clear) Urine pH 6.5 (5.0-8.0) Ur Specific [place] 1.019 (1.001-1.035) Urine Protein Trace H (Negative) Urine Glucose (UA) Negative (Negative) Urine Ketones 1+ H (Negative) Urine Blood Negative (Negative) Urine Nitrite Negative (Negative) Urine Bilirubin Negative (Negative) Urine Urobilinogen 2.0 (<2.0) mg/dL Ur Leukocyte Esterase Negative (Negative) Urine HCG, Qual Not Detected (Not Detectd) Stool Occult Blood (Negative) Blood Type Blood Type Recheck Bld Type Recheck Status Antibody Screen Spec Expiration Date Disposition <Camila Paz - Last Filed: 10/13/22 18:22> Is patient prescribed a controlled substance at d/c from ED?: No Time of Disposition: 23:01 <Santana Crump - Last Filed: 10/13/22 23:01> Clinical Impression: Colitis Disposition: HOME SELF-CARE Condition: Good Instructions (If sedation given, give patient instructions): Colitis (ED) Additional Instructions: Please return to the Emergency Department if symptoms worsen or any other concerns. Referrals: Juan Pablo Cox MD [Primary Care Provider] - 1-2 days
[2022-10-13] MEDS ORDERED: MORPHINE SULFATE 4 MG/ML SYRINGE IVP STA (19:02)
[2022-10-13 19:16] LABS: Basophils % (A) 0 %; Eosinophils # (A) 0.5 k/uL (0-0.7); Eosinophils % (A) 2 %; HCT 49.7 % (34.0-46.0); HGB 15.9 gm/dL (11.4-16.0); Lymphocytes # (A) 2.1 k/uL (1.0-4.8); Lymphocytes % (A) 10 %; MCH 29.8 pg (25.0-35.0); Mean Platelet Volume 7.7; Monocytes # (A) 0.8 k/uL (0-1.0); Monocytes % (A) 4 %; Neutrophils # (A) 16.7 k/uL (1.3-7.7); Neutrophils % (A) 83 %; Platelet Count 341 k/uL (150-450); RBC 5.34 m/uL (3.80-5.40); RDW 13.2 % (11.5-15.5); WBC 20.3 k/uL (3.8-10.6)
[2022-10-13 19:31] LABS: ALT 18 U/L (4-34); AST 21 U/L (14-36); African American GFR (CKD) >90 (>60 ml/min/1.73 sqM); Albumin 4.1 g/dL (3.5-5.0); Alkaline Phosphatase 110 U/L (38-126); Amylase 38 U/L (30-110); Anion Gap 8 mmol/L; Blood Urea Nitrogen 13 mg/dL (7-17); Calcium 9.5 mg/dL (8.4-10.2); Carbon Dioxide 23 mmol/L (22-30); Chloride 107 mmol/L (98-107); Glucose 171 mg/dL (74-99); Lipase 84 U/L (23-300); Magnesium 1.8 mg/dL (1.6-2.3); Non-African American GFR(CKD) >90 (>60 ml/min/1.73 sqM); Potassium 4.1 mmol/L (3.5-5.1); Sodium 138 mmol/L (137-145); Total Bilirubin 0.4 mg/dL (0.2-1.3); Total Protein 6.8 g/dL (6.3-8.2)
[2022-10-13 19:41] LABS: INR 0.9 (<1.2); Partial Thromboplastin Time 23.7 sec (22.0-30.0); Prothrombin Time 10.1 sec (9.0-12.0)
[2022-10-13 20:54] LABS: Appearance,Urine Clear (Clear); Bilirubin,Urine Negative (Negative); Blood,Urine Negative (Negative); Color,Urine Yellow; Glucose,Urine (UA) Negative (Negative); Ketones,Urine 1+ (Negative); Leukocyte Esterase,Urine Negative (Negative); Nitrite,Urine Negative (Negative); PH, Urine 6.5 (5.0-8.0); Protein,Urine Trace (Negative); Specific Gravity,Urine 1.019 (1.001-1.035)
--- NOTE | 2022-10-13 22:39 | CT ---
EXAM: CT Abdomen and Pelvis With Intravenous Contrast CLINICAL HISTORY: ITS.REASON CT Reason: r/o UC/Chrons TECHNIQUE: Axial computed tomography images of the abdomen and pelvis with intravenous contrast. CTDI is 29.27 mGy and DLP is 845.1 mGy-cm. This CT exam was performed using one or more of the following dose reduction techniques: automated exposure control, adjustment of the mA and/or kV according to patient size, and/or use of iterative reconstruction technique. COMPARISON: No relevant prior studies available. FINDINGS: Lung bases: Unremarkable. No mass. No consolidation. ABDOMEN: Liver: Unremarkable. No mass. Gallbladder and bile ducts: Unremarkable. No calcified stones. No ductal dilation. Pancreas: Unremarkable. No mass. No ductal dilation. Spleen: Unremarkable. No splenomegaly. Adrenals: Unremarkable. No mass. Kidneys and ureters: Unremarkable. No solid mass. No hydronephrosis. Stomach and bowel: Wall thickening of the transverse and descending colons most consistent with colitis. Infectious versus inflammatory bowel disease. The terminal ileum is unremarkable. No obstruction. PELVIS: Appendix: No findings to suggest acute appendicitis. Bladder: Unremarkable. No mass. Reproductive: Unremarkable as visualized. ABDOMEN and PELVIS: Intraperitoneal space: Unremarkable. No free air. No significant fluid collection. Bones/joints: No acute fracture. No dislocation. Soft tissues: Unremarkable. Vasculature: Unremarkable. No abdominal aortic aneurysm. Lymph nodes: Unremarkable. No enlarged lymph nodes. IMPRESSION: Wall thickening of the transverse and descending colons most consistent with colitis. Infectious versus inflammatory bowel disease.
[2022-10-13 23:18] VITALS: BP 132/86; PULSE 82; RESP 18
== END 2022-10-13 23:16 | disposition home or self-care (01) ==
LOC: EC 16:06
DX: K52.9 Noninfective gastroenteritis and colitis, unspecified (principal); E10.40 Type 1 diabetes mellitus with diabetic neuropathy, unspecified; I10 Essential (primary) hypertension; E78.5 Hyperlipidemia, unspecified; F17.200 Nicotine dependence, unspecified, uncomplicated; Z79.899 Other long term (current) drug therapy; Z88.8 Allergy status to other drugs, medicaments and biological substances
CPT/HCPCS: 36415; 86900; 86901; 80053; 82150; 83605; 83690; 83735; 85025; 85610; 85730; 86850; 82272; 81003; 81025; 74177; 99284; 96374; J2270; Q9967

== ENCOUNTER → 2022-11-10 | Outpatient (CLI) | payer OTHER ==
--- NOTE | 2022-11-10 13:16 | P.GSHP ---
History of Present Illness H&P Date: 11/10/22 Chief Complaint: nipple lesion Yael is a 41 year old white female seen in consultation for Dr. Cox regarding a left nipple lesion. She had a bilateral mammogram on 06-09-20 which was BIRAD 2. She has not had a mammogram since that time. She states her dog jumped on her and scratched the area and the lump has grown and fills with blood. It is not painful. It has been present for two years. It has increased in size. She is not complaining of fever of chills. She did a string around it and it fell off but it did come right back. She has not had any surgery on her breast. She is not complaining of any recent infection in the breast. She does note some nodularity in the lateral aspect of the right breast for the past several years. She is not complaining of any nipple discharge. Caffeine: 2 cups coffee/day energy drink occasional nicotine: 10/day since 11 years old chocolate: occasional BCP: shots as a teen ager Family History: father: colon cancer, skin cancer mother: breast cancer, skin cancer, uterine cancer (? melanoma) maternal grandmother: breast cancer paternal grandmother: breast cancer Hormonal History: menarche: 8 , breast fed: yes, age at first : 21 no periods ablation at 39 hormones: none Surgical history: ablation uterine 2 C sections Medical history: Diabetic Back pain HTN high cholesterol arthritis Mitral valve prolapse with regurgitation Social History: alcohol: none drugs: none nicotine: as above - Constitutional Constitutional: Denies chills, Denies fever - EENT Comment: blood behind right eye Eyes: denies blurred vision, denies pain Ears: right: decreased hearing, deny: tinnitus Ears, nose, mouth and throat: Denies headache, Denies sore throat - Breasts Breasts: bilateral: as per HPI - Cardiovascular Cardiovascular: Denies chest pain, Denies shortness of breath - Respiratory Respiratory: Reports cough - Gastrointestinal Comment: Crohn's colitis hospitalized Gastrointestinal: Denies abdominal pain, Denies diarrhea, Denies nausea, Denies vomiting - Genitourinary (Female) Genitourinary: Denies dysuria, Denies hematuria - Menstruation Menstruation: Reports as per HPI - Musculoskeletal Musculoskeletal: Reports myalgias - Integumentary Integumentary: Denies pruritus, Denies rash - Neurological Comment: left leg numb from knee to ankle - Psychiatric Psychiatric: Denies anxiety, Denies depression - Endocrine Endocrine: Reports weight change, Denies fatigue - Hematologic/Lymphatic Comment: none - Allergic/Immunologic Allergic/Immunologic: Reports as per HPI Past Medical History Past Medical History: Diabetes Mellitus, Hyperlipidemia, Hypertension, Osteoarthritis (OA) Additional Past Medical History / Comment(s): MITRAL VALVE PROLAPSE , TYPE 1 DIABETIC, BONE SPUR LEFT SHOULDER, NEUROPATHY HANDS AND FEET, HAVING DIGESTIVE ISSUES-BLOATING AND CONSTIPATION History of Any Multi-Drug Resistant Organisms: None Reported Past Surgical History: Section, Uterine Ablation Additional Past Surgical History / Comment(s): C SECTION X2 , PAIN CLINIC P ROCEDURES IN THE PAST Past Anesthesia/Blood Transfusion Reactions: No Reported Reaction Past Psychological History: No Psychological Hx Reported Smoking Status: Current every day smoker Past Alcohol Use History: None Reported Past Drug Use History: None Reported - Past Family History Mother Family Medical History: Cancer Medications and Allergies Home Medications Medication Instructions Recorded Confirmed Type INSULIN LISPRO (humaLOG) [humaLOG] See Protocol SQ ACHS PRN 10/31/19 10/13/22 History Ibuprofen [Motrin] 800 mg PO Q8H PRN 10/31/19 10/13/22 History Metoprolol Tartrate [Lopressor] 25 mg PO BID 10/31/19 10/13/22 History Diclofenac Sodium Gel [Voltaren 1 applic TOPICAL DAILY PRN 03/29/22 10/13/22 History Gel] Rosuvastatin [Crestor] 10 mg PO DAILY 03/29/22 10/13/22 History Albuterol Inhaler [Ventolin Hfa 2 puff INHALATION RT-Q6H PRN 10/13/22 10/13/22 History Inhaler] Amoxic-Pot Clav 875-125Mg 1 tab PO Q12HR 10/13/22 10/13/22 History [Augmentin 875-125] Insulin Detemir [Levemir Flexpen] 42 units SQ DAILY 10/13/22 10/13/22 History lisinopriL [Zestril] 2.5 mg PO DAILY 10/13/22 10/13/22 History Allergies Allergy/AdvReac Type Severity Reaction Status Date / Time marijuana (cannabis) AdvReac Itching Verified 11/10/22 12:56 Surgical - Exam - General no distress - Eyes normal ocular movement - ENT no hearing loss - Neck trachea midline - Respiratory normal respiratory effort, clear to auscultation - Cardiovascular Rhythm: regular Heart Sounds: normal: S1, S2 - Abdomen Abdomen: soft, non tender, no guarding, no rigid, no rebound - Integumentary normal turgor - Neurologic no disoriented, no combative - Musculoskeletal normal gait - Psychiatric oriented to time, oriented to person, oriented to place, speech is normal, memory intact Breast Exam: BRA: 36D Inspection: Small protrusion left nipple Bilateral grade 2 ptosis Palpation: Right breast: Very dense breast with fullness in the lateral aspect Right axilla: No adenopathy of concern Left breast: Very dense breast no discrete dominant masses or nodules of concern Left axilla: No adenopathy of concern Results Last mammogram results reviewed this was from June 2020 Assessment and Plan Assessment: Impression: 3 dense breast Fullness right breast lateral aspect Protrusion left nipple Plan: Bilateral mammogram Bilateral breast ultrasound Probable resection of lesion left nipple in the operating room follow up after above done Cc: Dr. Cox
== END ==
LOC: WWCWWP 12:49
PROVIDERS: ATTEND Surgery
DX: R92.8 Other abnormal and inconclusive findings on diagnostic imaging of breast (principal); I34.1 Nonrheumatic mitral (valve) prolapse; E10.40 Type 1 diabetes mellitus with diabetic neuropathy, unspecified; E78.00 Pure hypercholesterolemia, unspecified; F17.200 Nicotine dependence, unspecified, uncomplicated; I10 Essential (primary) hypertension; M19.90 Unspecified osteoarthritis, unspecified site; Z79.4 Long term (current) use of insulin; Z80.3 Family history of malignant neoplasm of breast; W54.1XXA Struck by dog, initial encounter

== ENCOUNTER → 2022-12-26 | Outpatient (CLI) | payer OTHER ==
--- NOTE | 2022-12-26 13:15 | MM ---
Reason for Exam: Clinical finding. Last mammogram was performed 2 year(s) and 6 month(s) ago. Indicated Problems: Lump or thickening of the left side for 5 Year(s). Patient History: Menarche at age 8. First Full-Term at age 26. Paternal grandmother had breast cancer. Maternal grandmother had breast cancer. Mother had breast cancer, age 65. Risk Values: Yasmine 5 year model risk: 1.5%. NCI Lifetime model risk: 19.9%. Prior Study Comparison: 05/14/2019 Bilateral Screening Mammogram, [facility]. 05/14/2019 Bilateral Diagnostic Mammogram, [facility]. 06/29/2020 Bilateral Diagnostic Mammogram, [facility]. Tissue Density: The breast tissue is heterogeneously dense. This may lower the sensitivity of mammography. Findings: Analyzed By CAD. No new suspicious masses, calcifications or distortions. Overall Assessment: Incomplete: need additional imaging evaluation, BI-RAD 0 Management: Diagnostic Breast Ultrasound of both breasts. Results were given to the patient verbally at the time of exam. Patient should continue monthly self-breast exams. A clinical breast exam by your physician is recommended on an annual basis. This exam should not preclude additional follow-up of suspicious palpable abnormalities. Note on Yasmine scores and lifetime risk: 1. A Yasmine score greater than 3% is considered moderate risk. If this is the case, consider specialist referral to assess eligibility for a risk reducing agent. 2. If overall lifetime risk for the development of breast cancer is 20% or higher, the patient may qualify for future screening with alternating mammogram and breast MRI. Electronically signed and approved by: Elio Campos DO
--- NOTE | 2022-12-26 13:19 | USB ---
Reason for Exam: Clinical finding. Patient History: Menarche at age 8. First Full-Term at age 26. Paternal grandmother had breast cancer. Maternal grandmother had breast cancer. Mother had breast cancer, age 65. Risk Values: Yasmine 5 year model risk: 1.5%. NCI Lifetime model risk: 19.9%. Technique: Method: Whole Breast Handheld. Prior Study Comparison: 05/14/2019 Bilateral Screening Mammogram, [facility]. 05/14/2019 Bilateral Diagnostic Mammogram, [facility]. 06/29/2020 Bilateral Diagnostic Mammogram, [facility]. Findings: The whole breast of both breasts, the axilla of both breasts and the retroareolar of both breasts were scanned. Technique utilized:US breast complete BILAT Image; Ultrasound imaging of bilateral breasts: All 4 quadrants, the retroareolar region and axilla. Anechoic cyst left breast 5:00 5 cm from nipple measuring 3 mm. No suspicious findings in either breast. Overall Assessment: Benign, BI-RAD 2 Management: Screening Mammogram of both breasts in 1 year. A clinical breast exam by your physician is recommended on an annual basis and results should be correlated with mammographic findings. This exam should not preclude additional follow-up of suspicious palpable abnormalities. Results were given to the patient verbally at the time of exam. Electronically signed and approved by: Elio Campos DO
== END | disposition home or self-care (01) ==
LOC: RADMAMWWP 12:12
PROVIDERS: ATTEND Surgery
DX: N63.23 Unspecified lump in the left breast, lower outer quadrant (principal); Z80.3 Family history of malignant neoplasm of breast
CPT/HCPCS: 77066; 76641; G0279; 77062

== ENCOUNTER → 2023-01-20 | Outpatient (CLI) | payer OTHER ==
[2023-01-20 09:12] VITALS: BP 125/84; PULSE 89; RESP 17; TEMP 98.3
--- NOTE | 2023-01-20 09:19 | P.PN ---
Subjective Progress Note Date: 01/20/23 Yael is a 41 year old white female seen in consultation for Dr. Cox regarding a left nipple lesion. She had a bilateral mammogram on 06-09-20 which was BIRAD 2. She has not had a mammogram since that time. She states her dog jumped on her and scratched the area and the lump has grown and fills with bloo d. It is not painful. It has been present for two years. It has increased in size. She is not complaining of fever of chills. She did a string around it and it fell off but it did come right back. She has not had any surgery on her breast. She is not complaining of any recent infection in the breast. She does note some nodularity in the lateral aspect of the right breast for the past several years. She is not complaining of any nipple discharge. 01-20-23 bilateral mammogram and ultrasound 12-26-22 BIRAD 2 Yasmine Risk: 5 years: 1.5% .9% Discussed chemoprevention secondary to high lifetime risk as well as alternating mammogram with MRI every 6 months The patient would like to have genetic testing and secondary to her strong family history of breast cancer Caffeine: 2 cups coffee/day energy drink occasional nicotine: 10/day since 11 years old chocolate: occasional BCP: shots as a teen ager Family History: father: colon cancer, skin cancer mother: breast cancer, skin cancer, uterine cancer (? melanoma) maternal grandmother: breast cancer paternal grandmother: breast cancer Hormonal History: menarche: 8 , breast fed: yes, age at first : 21 no periods ablation at 39 hormones: none Surgical history: ablation uterine 2 C sections Medical history: Diabetic Back pain HTN high cholesterol arthritis Mitral valve prolapse with regurgitation Social History: alcohol: none drugs: none nicotine: as above - Constitutional Constitutional: Denies chills, Denies fever - EENT Comment: blood behind right eye Eyes: denies blurred vision, denies pain Ears: right: decreased hearing, deny: tinnitus Ears, nose, mouth and throat: Denies headache, Denies sore throat - Breasts Breasts: bilateral: as per HPI - Cardiovascular Cardiovascular: Denies chest pain, Denies shortness of breath - Respiratory Respiratory: Reports cough - Gastrointestinal Comment: Crohn's colitis hospitalized Gastrointestinal: Denies abdominal pain, Denies diarrhea, Denies nausea, Denies vomiting - Genitourinary (Female) Genitourinary: Denies dysuria, Denies hematuria - Menstruation Menstruation: Reports as per HPI - Musculoskeletal Musculoskeletal: Reports myalgias - Integumentary Integumentary: Denies pruritus, Denies rash - Neurological Comment: left leg numb from knee to ankle - Psychiatric Psychiatric: Denies anxiety, Denies depression - Endocrine Endocrine: Reports weight change, Denies fatigue - Hematologic/Lymphatic Comment: none - Allergic/Immunologic Allergic/Immunologic: Reports as per HPI Past Medical History Past Medical History: Diabetes Mellitus, Hyperlipidemia, Hypertension, Osteoarthritis (OA) Additional Past Medical History / Comment(s): MITRAL VALVE PROLAPSE , TYPE 1 DIABETIC, BONE SPUR LEFT SHOULDER, NEUROPATHY HANDS AND FEET, HAVING DIGESTIVE ISSUES-BLOATING AND CONSTIPATION History of Any Multi-Drug Resistant Organisms: None Reported Past Surgical History: Section, Uterine Ablation Additional Past Surgical History / Comment(s): C SECTION X2 , PAIN CLINIC PROCEDURES IN THE PAST Past Anesthesia/Blood Transfusion Reactions: No Reported Reaction Past Psychological History: No Psychological Hx Reported Smoking Status: Current every day smoker Past Alcohol Use History: None Reported Past Drug Use History: None Reported - Past Family History Mother Family Medical History: Cancer Medications and Allergies Home Medications Medication Instructions Recorded Confirmed Type INSULIN LISPRO (humaLOG) [humaLOG] See Protocol SQ ACHS PRN 10/31/19 10/13/22 History Ibuprofen [Motrin] 800 mg PO Q8H PRN 10/31/19 10/13/22 History Metoprolol Tartrate [Lopressor] 25 mg PO BID 10/31/19 10/13/22 History Diclofenac Sodium Gel [Voltaren 1 applic TOPICAL DAILY PRN 03/29/22 10/13/22 History Gel] Rosuvastatin [Crestor] 10 mg PO DAILY 03/29/22 10/13/22 History Albuterol Inhaler [Ventolin Hfa 2 puff INHALATION RT-Q6H PRN 10/13/22 10/13/22 History Inhaler] Amoxic-Pot Clav 875-125Mg 1 tab PO Q12HR 10/13/22 10/13/22 History [Augmentin 875-125] Insulin Detemir [Levemir Flexpen] 42 units SQ DAILY 10/13/22 10/13/22 History lisinopriL [Zestril] 2.5 mg PO DAILY 10/13/22 10/13/22 History Allergies Allergy/AdvReac Type Severity Reaction Status Date / Time marijuana (cannabis) AdvReac Itching Verified 11/10/22 12:56 Objective - Vital Signs Vital signs: Vital Signs Temp 98.3 F 01/20/23 08:58 Pulse 89 01/20/23 08:58 Resp 17 01/20/23 08:58 BP 125/84 01/20/23 08:58 Pulse Ox 97 01/20/23 08:58 FiO2 Intake & Output 01/19/23 01/20/23 01/20/23 18:59 06:59 18:59 Weight 70.307 kg - Constitutional General appearance: Present: cooperative - EENT Eyes: Present: EOMI ENT: Present: hearing grossly normal - Neck Neck: Present: normal ROM - Respiratory Respiratory: bilateral: CTA - Cardiovascular Heart sounds: normal: S1, S2 - Integumentary Integumentary: Present: normal turgor - Musculoskeletal Musculoskeletal: Present: gait normal - Psychiatric Psychiatric: Present: A&O x's 3, appropriate affect, intact judgment & insight - Additional findings Additional findings: Breast Exam: BRA: 36D Inspection: Small protrusion left nipple Bilateral grade 2 ptosis Palpation: Right breast: Very dense breast with fullness in the lateral aspect Right axilla: No adenopathy of concern Left breast: Very dense breast no discrete dominant masses or nodules of concern Left axilla: No adenopathy of concern Assessment and Plan Assessment: Impression: dense breast Fullness right breast lateral aspect Protrusion left nipple Plan: Bilateral mammogram 12-26-22 BIRAD 0 Bilateral breast ultrasound 12-26-22 BIRAD 2 resection of lesion left nipple in the operating room alternate MRI vs mammogram every 6 months genetic testing consider chem prevention Risks of resection of the nipple lesion are discussed with the patient. Risks include but are not limited to bleeding, infection, reaction to the anesthetic. Additionally she may lose some sensation or erection of the nipple. The lesion may recur. She understands and wishes to proceed. Cc: Dr. Cox
== END ==
LOC: WWCWWP 08:43
PROVIDERS: ATTEND Surgery
DX: R92.30 Dense breasts, unspecified (principal); N63.10 Unspecified lump in the right breast, unspecified quadrant; N64.59 Other signs and symptoms in breast; M19.90 Unspecified osteoarthritis, unspecified site; I34.1 Nonrheumatic mitral (valve) prolapse; E78.00 Pure hypercholesterolemia, unspecified; E10.40 Type 1 diabetes mellitus with diabetic neuropathy, unspecified; I10 Essential (primary) hypertension; F17.200 Nicotine dependence, unspecified, uncomplicated; Z80.3 Family history of malignant neoplasm of breast; Z79.4 Long term (current) use of insulin; Z79.899 Other long term (current) drug therapy; Z88.8 Allergy status to other drugs, medicaments and biological substances

== ENCOUNTER 2023-01-24 12:18 | Day surgery (SDC) | payer OTHER ==
[~2023-01-24 12:18] MED LIST changes: +DEXAMETHASONE SOD PHOSPHATE 4 MG/ML 1 ML VIAL IV ONE; +HEPARIN SODIUM,PORCINE/PF 5,000 UNIT/0.5 ML SYRINGE SQ PRN; +HYDROmorphone 0.5 MG/0.5 ML SYRINGE IVP PRN; +MIDAZOLAM 2 MG/2 ML VIAL IV PRN; +ONDANSETRON 4 MG/2 ML VIAL IVP ONE; +Pre Op ABX Message 1 EACH MISC MISCELLANE ONE
[2023-01-24 13:08] LABS: Glucose,Whole Blood 138 mg/dL (70-110)
[2023-01-24 13:15] LABS: Basophils # (A) 0.1 k/uL (0-0.2); Basophils % (A) 1 %; Eosinophils # (A) 0.3 k/uL (0-0.7); Eosinophils % (A) 2 %; HCT 49.5 % (34.0-46.0); HGB 16.4 gm/dL (11.4-16.0); Lymphocytes # (A) 2.6 k/uL (1.0-4.8); Lymphocytes % (A) 22 %; MCH 30.8 pg (25.0-35.0); MCHC 33.1 g/dL (31.0-37.0); MCV 93.1 fL (80.0-100.0); Mean Platelet Volume 7.6; Monocytes # (A) 0.3 k/uL (0-1.0); Monocytes % (A) 3 %; Neutrophils # (A) 8.3 k/uL (1.3-7.7); Neutrophils % (A) 72 %; Platelet Count 341 k/uL (150-450); RBC 5.31 m/uL (3.80-5.40); RDW 12.7 % (11.5-15.5); WBC 11.6 k/uL (3.8-10.6)
[2023-01-24 13:17] LABS: ALT 20 U/L (4-34); AST 21 U/L (14-36); African American GFR (CKD) >90 (>60 ml/min/1.73 sqM); Albumin 4.7 g/dL (3.5-5.0); Alkaline Phosphatase 119 U/L (38-126); Anion Gap 15 mmol/L; Blood Urea Nitrogen 16 mg/dL (7-17); Carbon Dioxide 17 mmol/L (22-30); Chloride 105 mmol/L (98-107); Glucose 143 mg/dL (74-99); Non-African American GFR(CKD) >90 (>60 ml/min/1.73 sqM); Potassium 4.4 mmol/L (3.5-5.1); Sodium 137 mmol/L (137-145); Total Bilirubin 0.8 mg/dL (0.2-1.3)
[2023-01-24 15:37] LABS: Glucose,Whole Blood 58 mg/dL (70-110)
[2023-01-24] MEDS ORDERED: KETOROLAC 15 MG/ML 1 ML VIAL ONE (15:37)
[2023-01-24] MEDS ORDERED: MIDAZOLAM 2 MG/2 ML VIAL ONE (15:37)
[2023-01-24] MEDS ORDERED: LIDOCAINE 1% INJ 10MG/ML (20 ML MDV) ONE (15:37)
[2023-01-24] MEDS ORDERED: PROPOFOL 10 MG/ML 20 ML VIAL IV ONE (15:37)
[2023-01-24] MEDS ORDERED: DEXTROSE 50% SYRINGE 50 ML IVP ONE (15:40)
[2023-01-24] MEDS ORDERED: LACTATED RINGERS 1,000 ML IV ONE (15:59)
--- NOTE | 2023-01-24 16:03 | P.PCN ---
Date of Procedure: 01/24/23 Preoperative Diagnosis: Lesion left nipple Postoperative Diagnosis: Same Procedure(s) Performed: Excision of lesion left nipple Anesthesia: TOY Surgeon: Jia Joiner Estimated Blood Loss (ml): 1 IV fluids (ml): 300 Pathology: other (Lesion left nipple) Condition: stable Disposition: same day Indications for Procedure: Left nipple lesion Operative Findings: lesion left nipple Description of Procedure: The patient was brought to the operative suite. Following induction of anesthesia the left breast and the periareolar area were prepped and draped in a sterile fashion. A wedge excision of the lesion of concern in the left nipple was performed. Hemostasis was attained using electrocautery device. The lesion was sent to pathology. The tissues were closed using nylon suture. The patient tolerated the procedure in stable condition. All instrument and sponge counts were correct at the end of the case.
[2023-01-24 16:11] LABS: Glucose,Whole Blood 119 mg/dL (70-110)
[2023-01-24 16:26] VITALS: TEMP 97.2
[2023-01-24 17:17] VITALS: BP 124/74; PULSE 85; RESP 16
== END 2023-01-24 17:28 | disposition home or self-care (01) ==
LOC: OR 12:18
PROVIDERS: ATTEND Surgery
DX: L91.8 Other hypertrophic disorders of the skin (principal); N64.89 Other specified disorders of breast
CPT/HCPCS: 19120; 81025; 88304; 80053; 85025; J2250; J1100; J2405; J2001; J1885; J2704; J1644

== ENCOUNTER → 2023-08-29 | Outpatient (CLI) | payer OTHER ==
--- NOTE | 2023-08-29 08:14 | MM ---
Reason for Exam: Follow-up at short interval from prior study. Last screening mammogram was performed 8 month(s) ago. Patient History: Menarche at age 8. First Full-Term at age 26. Paternal grandmother had breast cancer. Maternal grandmother had breast cancer. Mother had breast cancer, age 65. Risk Values: Yasmine 5 year model risk: 1.5%. NCI Lifetime model risk: 19.9%. Prior Study Comparison: 05/14/2019 Bilateral Diagnostic Mammogram, [facility]. 06/29/2020 Bilateral Diagnostic Mammogram, [facility]. 12/26/2022 Bilateral MG 3D diag mammo w/cad JULIANA, [facility]. Tissue Density: Left: The breasts are extremely dense, which lowers the sensitivity of mammography. Findings: Analyzed By CAD. The pattern appears stable No suspicious groups of microcalcifications, spiculated or lobular masses, architectural distortion or other secondary signs of malignancy are mammographically apparent. Overall Assessment: Benign, BI-RAD 2 Management: Screening Mammogram of both breasts in 6 months. A negative mammogram report should not preclude additional follow up of suspicious palpable abnormalities. Patient should continue monthly self breast exam. A clinical breast exam by your physician is recommended on an annual basis and results should be correlated with mammographic findings. Note on Yasmine scores and lifetime risk: 1. A Yasmine score greater than 3% is considered moderate risk. If this is the case, consider specialist referral to assess eligibility for a risk reducing agent. 2. If overall lifetime risk for the development of breast cancer is 20% or higher, the patient may qualify for future screening with alternating mammogram and breast MRI. Electronically signed and approved by: Arden Ramirez D.O. Radiologis
== END | disposition home or self-care (01) ==
LOC: RADMAMWWP 07:48
PROVIDERS: ATTEND Surgery
DX: R92.342 Mammographic extreme density, left breast (principal); Z80.3 Family history of malignant neoplasm of breast
CPT/HCPCS: 77065; G0279; 77061

== ENCOUNTER → 2023-08-30 | Outpatient (CLI) | payer OTHER ==
--- NOTE | 2023-08-30 11:17 | P.PN ---
Subjective Progress Note Date: 08/30/23 Principal diagnosis: polyp left nipple left nipple lesion Yael is a 42-year-old female who was initially seen in consultation for Dr. Juan Pablo Cox on 11-10-2022, regarding the left nipple lesion, and fibrocysitc disease. She underwent an excision of the lesion on the left nipple operating room on 01-24-2023. This revealed a benign fibroepithelial polyp. Prior to that she had undergone a bilateral mammogram on 12-26-2022 followed by a bilateral breast ultrasound on the same date. This was felt to be benign BI- RADS 2. The patient has had a recent left breast mammogram on 08-29-2023 which is benign BI-RADS 2. The this was personally reviewed. The patient is not complaining of any new lumps masses or nodules of concern. The polyp at the nipple has not recurred. She is not complaining of any nipple discharge or skin changes. The patient is a brittle diabetic, she has been a diabetic for over 20 years, she is presently going for a review to be on the pancreas transplant list. Additionally, she was recently diagnosed with gastroparesis. She has been started on truliance to cause her to have bowel movements. She has diarrhea with this. She has not done any exams to tell whether she has any new lumps masses or nodules of concern in either breast. Yasmine 5-year model risk: 1.5% NCI lifetime risk 19.9% Caffeine: 2 cups coffee/day energy drink occasional nicotine: 10/day since 11 years old chocolate: occasional BCP: shots as a teenager Family History: father: colon cancer, skin cancer mother: breast cancer, skin cancer, uterine cancer (? melanoma) maternal grandmother: breast cancer paternal grandmother: breast cancer Hormonal History: menarche: 8 , breast fed: yes, age at first : 21 no periods ablation at 39 hormones: none Surgical history: ablation uterine 2 C sections Medical history: Diabetic Back pain HTN high cholesterol arthritis Mitral valve prolapse with regurgitation gastroporesis bilateral shoulder joint pian/frozen Social History: alcohol: none drugs: none nicotine: as above - Constitutional Constitutional: Denies chills, Denies fever - EENT Comment: blood behind right eye Eyes: denies blurred vision, denies pain Ears: right: decreased hearing, deny: tinnitus Ears, nose, mouth and throat: Denies headache, Denies sore throat - Breasts Breasts: bilateral: as per HPI - Cardiovascular Cardiovascular: Denies chest pain, Denies shortness of breath - Respiratory Respiratory: Reports cough - Gastrointestinal Comment: Crohn's colitis hospitalized Gastrointestinal: Denies abdominal pain, Denies diarrhea, Denies nausea, Denies vomiting - Genitourinary (Female) Genitourinary: Denies dysuria, Denies hematuria - Menstruation Menstruation: Reports as per HPI - Musculoskeletal Musculoskeletal: Reports myalgias - Integumentary Integumentary: Denies pruritus, Denies rash - Neurological Comment: left leg numb from knee to ankle - Psychiatric Psychiatric: Denies anxiety, Denies depression - Endocrine Endocrine: Reports weight change, Denies fatigue - Hematologic/Lymphatic Comment: none - Allergic/Immunologic Allergic/Immunologic: Reports as per HPI Past Medical History Past Medical History: Diabetes Mellitus, Hyperlipidemia, Hypertension, Osteoarthritis (OA) Additional Past Medical History / Comment(s): MITRAL VALVE PROLAPSE , TYPE 1 DIABETIC, BONE SPUR LEFT SHOULDER, NEUROPATHY HANDS AND FEET, HAVING DIGESTIVE ISSUES-BLOATING AND CONSTIPATION History of Any Multi-Drug Resistant Organisms: None Reported Past Surgical History: Section, Uterine Ablation Additional Past Surgical History / Comment(s): C SECTION X2 , PAIN CLINIC PRO CEDURES IN THE PAST Past Anesthesia/Blood Transfusion Reactions: No Reported Reaction Past Psychological History: No Psychological Hx Reported Smoking Status: Current every day smoker Past Alcohol Use History: None Reported Past Drug Use History: None Reported - Past Family History Mother Family Medical History: Cancer Medications and Allergies Home Medications Medication Instructions Recorded Confirmed Type INSULIN LISPRO (humaLOG) [humaLOG] See Protocol SQ ACHS PRN 10/31/19 10/13/22 History Ibuprofen [Motrin] 800 mg PO Q8H PRN 10/31/19 10/13/22 History Metoprolol Tartrate [Lopressor] 25 mg PO BID 10/31/19 10/13/22 History Diclofenac Sodium Gel [Voltaren 1 applic TOPICAL DAILY PRN 03/29/22 10/13/22 History Gel] Rosuvastatin [Crestor] 10 mg PO DAILY 03/29/22 10/13/22 History Albuterol Inhaler [Ventolin Hfa 2 puff INHALATION RT-Q6H PRN 10/13/22 10/13/22 History Inhaler] Amoxic-Pot Clav 875-125Mg 1 tab PO Q12HR 10/13/22 10/13/22 History [Augmentin 875-125] Insulin Detemir [Levemir Flexpen] 42 units SQ DAILY 10/13/22 10/13/22 History lisinopriL [Zestril] 2.5 mg PO DAILY 10/13/22 10/13/22 History Allergies Allergy/AdvReac Type Severity Reaction Status Date / Time marijuana (cannabis) AdvReac Itching Verified 11/10/22 12:56 Objective - Constitutional General appearance: Present: cooperative - EENT Eyes: Present: EOMI ENT: Present: hearing grossly normal - Neck Neck: Present: normal ROM - Respiratory Respiratory: bilateral: CTA - Cardiovascular Rhythm: regular Heart sounds: normal: S1, S2 - Gastrointestinal General gastrointestinal: Present: soft - Integumentary Integumentary: Present: normal turgor - Musculoskeletal Musculoskeletal: Present: gait normal - Psychiatric Psychiatric: Present: A&O x's 3, appropriate affect, intact judgment & insight - Additional findings Additional findings: Breast Exam: BRA: 36D Inspection: bilateral grade 2 ptosis Palpation: Right breast: Very dense breast with fullness in the lateral aspect persistent Right axilla: No adenopathy of concern Left breast: Very dense breast no discrete dominant masses or nodules of concern Left axilla: No adenopathy of concern Assessment and Plan Assessment: Impression: dense breast diabetic disease frozen shoulder Plan: discussed genetic testing/ she will follow up with this Bilateral mammogram 6 months attempt to get breast MRI/dense breast and life time risk 19.9% FNA UOQ right breast (appointment in mid September 2023) follow up sooner any concerns Cc: Dr. Cox
[2023-08-30 12:36] VITALS: BP 135/74; PULSE 67; RESP 17; TEMP 98.1
== END ==
LOC: WWCWWP 09:46
PROVIDERS: ATTEND Surgery
DX: R92.30 Dense breasts, unspecified (principal); M75.00 Adhesive capsulitis of unspecified shoulder; E10.43 Type 1 diabetes mellitus with diabetic autonomic (poly)neuropathy; F17.200 Nicotine dependence, unspecified, uncomplicated; K31.84 Gastroparesis; R19.7 Diarrhea, unspecified; Z80.3 Family history of malignant neoplasm of breast; Z88.8 Allergy status to other drugs, medicaments and biological substances

== ENCOUNTER → 2023-10-09 | Outpatient (CLI) | payer OTHER ==
[2023-10-09 08:14] VITALS: BP 160/94; PULSE 71; RESP 17; TEMP 98.2
--- NOTE | 2023-10-09 08:25 | P.PN ---
Subjective Progress Note Date: 10/09/23 Principal diagnosis: Fullness right breast upper outer quadrant polyp left nipple left nipple lesion Yael is a 42-year-old female who was initially seen in consultation for Dr. Juan Pablo Cox on 11-10-2022, regarding the left nipple lesion, and fibrocysitc disease. She underwent an excision of the lesion on the left nipple operating room on 01-24-2023. This revealed a benign fibroepithelial polyp. Prior to that she had undergone a bilateral mammogram on 12-26-2022 followed by a bilateral breast ultrasound on the same date. This was felt to be benign BI- RADS 2. The patient has had a recent left breast mammogram on 08-29-2023 which is benign BI-RADS 2. The this was personally reviewed. The patient is not complaining of any new lumps masses or nodules of concern. The polyp at the nipple has not recurred. She is not complaining of any nipple discharge or skin changes. The patient is a brittle diabetic, she has been a diabetic for over 20 years, she is presently going for a review to be on the pancreas transplant list. Additionally, she was recently diagnosed with gastroparesis. She has been started on truliance to cause her to have bowel movements. She has diarrhea with this. She has not done any exams to tell whether she has any new lumps masses or nodules of concern in either breast. On her last visit of 08-30-2023 she was noted to have increased fullness in the right breast in the upper outer quadrant area. An FNA of this area was recommended. Yasmine 5-year model risk: 1.5% NCI lifetime risk 19.9% Caffeine: 2 cups coffee/day energy drink occasional nicotine: 10/day since 11 years old chocolate: occasional BCP: shots as a teenager Family History: father: colon cancer, skin cancer mother: breast cancer, skin cancer, uterine cancer (? melanoma) maternal grandmother: breast cancer paternal grandmother: breast cancer Hormonal History: menarche: 8 , breast fed: yes, age at first : 21 no periods ablation at 39 hormones: none Surgical history: ablation uterine 2 C sections Medical history: Diabetic Back pain HTN high cholesterol arthritis Mitral valve prolapse with regurgitation gastroporesis bilateral shoulder joint pian/frozen Social History: alcohol: none drugs: none nicotine: as above - Constitutional Constitutional: Denies chills, Denies fever - EENT Comment: blood behind right eye Eyes: denies blurred vision, denies pain Ears: right: decreased hearing, deny: tinnitus Ears, nose, mouth and throat: Denies headache, Denies sore throat - Breasts Breasts: bilateral: as per HPI - Cardiovascular Cardiovascular: Denies chest pain, Denies shortness of breath - Respiratory Respiratory: Reports cough - Gastrointestinal Comment: Crohn's colitis hospitalized Gastrointestinal: Denies abdominal pain, Denies diarrhea, Denies nausea, Denies vomiting - Genitourinary (Female) Genitourinary: Denies dysuria, Denies hematuria - Menstruation Menstruation: Reports as per HPI - Musculoskeletal Musculoskeletal: Reports myalgias - Integumentary Integumentary: Denies pruritus, Denies rash - Neurological Comment: left leg numb from knee to ankle - Psychiatric Psychiatric: Denies anxiety, Denies depression - Endocrine Endocrine: Reports weight change, Denies fatigue - Hematologic/Lymphatic Comment: none - Allergic/Immunologic Allergic/Immunologic: Reports as per HPI Past Medical History Past Medical History: Diabetes Mellitus, Hyperlipidemia, Hypertension, Osteoarthritis (OA) Additional Past Medical History / Comment(s): MITRAL VALVE PROLAPSE , TYPE 1 DIABETIC, BONE SPUR LEFT SHOULDER, NEUROPATHY HANDS AND FEET, HAVING DIGESTIVE ISSUES-BLOATING AND CONSTIPATION History of Any Multi-Drug Resistant Organisms: None Reported Past Surgical History: Section, Uterine Ablation Additional Past Surgical History / Comment(s): C SECTION X2 , PAIN CLINIC PROCEDURES IN THE PAST Past Anesthesia/Blood Transfusion Reactions: No Reported Reaction Past Psychological History: No Psychological Hx Reported Smoking Status: Current every day smoker Past Alcohol Use History: None Reported Past Drug Use History: None Reported - Past Family History Mother Family Medical History: Cancer Medications and Allergies Home Medications Medication Instructions Recorded Confirmed Type INSULIN LISPRO (humaLOG) [humaLOG] See Protocol SQ ACHS PRN 10/31/19 10/13/22 History Ibuprofen [Motrin] 800 mg PO Q8H PRN 10/31/19 10/13/22 History Metoprolol Tartrate [Lopressor] 25 mg PO BID 10/31/19 10/13/22 History Diclofenac Sodium Gel [Voltaren 1 applic TOPICAL DAILY PRN 03/29/22 10/13/22 History Gel] Rosuvastatin [Crestor] 10 mg PO DAILY 03/29/22 10/13/22 History Albuterol Inhaler [Ventolin Hfa 2 puff INHALATION RT-Q6H PRN 10/13/22 10/13/22 History Inhaler] Amoxic-Pot Clav 875-125Mg 1 tab PO Q12HR 10/13/22 10/13/22 History [Augmentin 875-125] Insulin Detemir [Levemir Flexpen] 42 units SQ DAILY 10/13/22 10/13/22 History lisinopriL [Zestril] 2.5 mg PO DAILY 10/13/22 10/13/22 History Allergies Allergy/AdvReac Type Severity Reaction Status Date / Time marijuana (cannabis) AdvReac Itching Verified 11/10/22 12:56 Objective - Vital Signs Vital signs: Intake & Output 10/08/23 10/09/23 10/09/23 18:59 06:59 18:59 Weight 79.379 kg - Constitutional General appearance: Present: cooperative - EENT Eyes: Present: EOMI ENT: Present: hearing grossly normal - Neck Neck: Present: normal ROM - Respiratory Respiratory: bilateral: CTA - Cardiovascular Heart sounds: normal: S1, S2 - Integumentary Integumentary: Present: normal turgor - Musculoskeletal Musculoskeletal: Present: gait normal - Psychiatric Psychiatric: Present: A&O x's 3, appropriate affect, intact judgment & insight - Additional findings Additional findings: Breast Exam: BRA: 36D Inspection: bilateral grade 2 ptosis Palpation: Right breast: Very dense breast with fullness in the lateral aspect persistent Right axilla: No adenopathy of concern Left breast: Very dense breast no discrete dominant masses or nodules of concern Left axilla: No adenopathy of concern Assessment and Plan Assessment: Impression: dense breast diabetic disease frozen shoulder Plan: discussed genetic testing/ she will follow up with this Bilateral mammogram 6 months attempt to get breast MRI/dense breast and life time risk 19.9%, we have not obtained clearance from her insurance company for breast MRI at this time FNA UOQ right breast, follow up one week for results follow up sooner any concerns Following informed consent the area of concern in the right breast was addressed. This was prepped using alcohol. A 22-gauge needle and a 12 cc syringe was inserted into the area multiple passes were made with negative suction on the syringe. Cytology was obtained and sent to pathology. The patient tolerated the procedure in stable condition. She will return next week for results of the biopsy. Cc: Dr. Cox
== END ==
LOC: WWCWWP 07:51
PROVIDERS: ATTEND Surgery
DX: R92.30 Dense breasts, unspecified (principal); M75.00 Adhesive capsulitis of unspecified shoulder; E10.43 Type 1 diabetes mellitus with diabetic autonomic (poly)neuropathy; F17.200 Nicotine dependence, unspecified, uncomplicated; K31.84 Gastroparesis; R19.7 Diarrhea, unspecified; Z80.3 Family history of malignant neoplasm of breast; Z88.8 Allergy status to other drugs, medicaments and biological substances

== ENCOUNTER → 2023-10-26 | Outpatient (CLI) | payer OTHER ==
[2023-10-26 14:57] VITALS: BP 148/89; PULSE 72; RESP 16; TEMP 98.2
--- NOTE | 2023-10-26 15:15 | P.PN ---
Subjective Progress Note Date: 10/26/23 10/09/23 Principal diagnosis: Fullness right breast upper outer quadrant polyp left nipple left nipple lesion Yael is a 42-year-old female who was initially seen in consultation for Dr. Juan Pablo Cox on 11-10-2022, regarding the left nipple lesion, and fibrocysitc disease. She underwent an excision of the lesion on the left nipple operating room on 01-24-2023. This revealed a benign fibroepithelial polyp. Prior to that she had undergone a bilateral mammogram on 12-26-2022 followed by a bilateral breast ultrasound on the same date. This was felt to be benign BI- RADS 2. The patient has had a recent left breast mammogram on 08-29-2023 which is benign BI-RADS 2. The this was personally reviewed. The patient is not complaining of any new lumps masses or nodules of concern. The polyp at the nipple has not recurred. She is not complaining of any nipple discharge or skin changes. The patient is a brittle diabetic, she has been a diabetic for over 20 years, she is presently going for a review to be on the pancreas transplant list. Additionally, she was recently diagnosed with gastroparesis. She has been started on truliance to cause her to have bowel movements. She has diarrhea with this. She has not done any exams to tell whether she has any new lumps masses or nodules of concern in either breast. On her last visit of 08-30-2023 she was noted to have increased fullness in the right breast in the upper outer quadrant area. An FNA of this area was recommended. 10-26-23 An FNA of the right breast UOQ was done on 10-09-23, this was nondiagnostic. Was hypocellular consisting of fragments of adipose tissue in a background of blood. Yasmine 5-year model risk: 1.5% NCI lifetime risk 19.9% Caffeine: 2 cups coffee/day energy drink occasional nicotine: 10/day since 11 years old chocolate: occasional BCP: shots as a teenager Family History: father: colon cancer, skin cancer mother: breast cancer, skin cancer, uterine cancer (? melanoma) maternal grandmother: breast cancer paternal grandmother: breast cancer Hormonal History: menarche: 8 , breast fed: yes, age at first : 21 no periods ablation at 39 hormones: none Surgical history: ablation uterine 2 C sections Medical history: Diabetic Back pain HTN high cholesterol arthritis Mitral valve prolapse with regurgitation gastroporesis bilateral shoulder joint pian/frozen Social History: alcohol: none drugs: none nicotine: as above - Constitutional Constitutional: Denies chills, Denies fever - EENT Comment: blood behind right eye Eyes: denies blurred vision, denies pain Ears: right: decreased hearing, deny: tinnitus Ears, nose, mouth and throat: Denies headache, Denies sore throat - Breasts Breasts: bilateral: as per HPI - Cardiovascular Cardiovascular: Denies chest pain, Denies shortness of breath - Respiratory Respiratory: Reports cough - Gastrointestinal Comment: Crohn's colitis hospitalized Gastrointestinal: Denies abdominal pain, Denies diarrhea, Denies nausea, Denies vomiting - Genitourinary (Female) Genitourinary: Denies dysuria, Denies hematuria - Menstruation Menstruation: Reports as per HPI - Musculoskeletal Musculoskeletal: Reports myalgias - Integumentary Integumentary: Denies pruritus, Denies rash - Neurological Comment: left leg numb from knee to ankle - Psychiatric Psychiatric: Denies anxiety, Denies depression - Endocrine Endocrine: Reports weight change, Denies fatigue - Hematologic/Lymphatic Comment: none - Allergic/Immunologic Allergic/Immunologic: Reports as per HPI Past Medical History Past Medical History: Diabetes Mellitus, Hyperlipidemia, Hypertension, Osteoarthritis (OA) Additional Past Medical History / Comment(s): MITRAL VALVE PROLAPSE , TYPE 1 DIABETIC, BONE SPUR LEFT SHOULDER, NEUROPATHY HANDS AND FEET, HAVING DIGESTIVE ISSUES-BLOATING AND CONSTIPATION History of Any Multi-Drug Resistant Organisms: None Reported Past Surgical History: Section, Uterine Ablation Additional Past Surgical History / Comment(s): C SECTION X2 , PAIN CLINIC PROCEDURES IN THE PAST Past Anesthesia/Blood Transfusion Reactions: No Reported Reaction Past Psychological History: No Psychological Hx Reported Smoking Status: Current every day smoker Past Alcohol Use History: None Reported Past Drug Use History: None Reported - Past Family History Mother Family Medical History: Cancer Medications and Allergies Home Medications Medication Instructions Recorded Confirmed Type INSULIN LISPRO (humaLOG) [humaLOG] See Protocol SQ ACHS PRN 10/31/19 10/13/22 History Ibuprofen [Motrin] 800 mg PO Q8H PRN 10/31/19 10/13/22 History Metoprolol Tartrate [Lopressor] 25 mg PO BID 10/31/19 10/13/22 History Diclofenac Sodium Gel [Voltaren 1 applic TOPICAL DAILY PRN 03/29/22 10/13/22 History Gel] Rosuvastatin [Crestor] 10 mg PO DAILY 03/29/22 10/13/22 History Albuterol Inhaler [Ventolin Hfa 2 puff INHALATION RT-Q6H PRN 10/13/22 10/13/22 History Inhaler] Amoxic-Pot Clav 875-125Mg 1 tab PO Q12HR 10/13/22 10/13/22 History [Augmentin 875-125] Insulin Detemir [Levemir Flexpen] 42 units SQ DAILY 10/13/22 10/13/22 History lisinopriL [Zestril] 2.5 mg PO DAILY 10/13/22 10/13/22 History Allergies Allergy/AdvReac Type Severity Reaction Status Date / Time marijuana (cannabis) AdvReac Itching Verified 11/10/22 12:56 Objective - Vital Signs Vital signs: Intake & Output 10/08/23 10/09/23 10/09/23 18:59 06:59 18:59 Weight 79.379 kg - Constitutional General appearance: Present: cooperative - EENT Eyes: Present: EOMI ENT: Present: hearing grossly normal - Neck Neck: Present: normal ROM - Respiratory Respiratory: bilateral: CTA - Cardiovascular Heart sounds: normal: S1, S2 - Integumentary Integumentary: Present: normal turgor - Musculoskeletal Musculoskeletal: Present: gait normal - Psychiatric Psychiatric: Present: A&O x's 3, appropriate affect, intact judgment & insight - Additional findings Additional findings: Breast Exam: BRA: 36D Inspection: bilateral grade 2 ptosis Palpation: Right breast: Very dense breast with fullness in the lateral aspect persistent Right axilla: No adenopathy of concern Left breast: Very dense breast no discrete dominant masses or nodules of concern Left axilla: No adenopathy of concern Assessment and Plan Assessment: Impression: dense breast diabetic disease frozen shoulder Plan: discussed genetic testing/ she will follow up with this Bilateral mammogram 6 months attempt to get breast MRI/dense breast and life time risk 19.9%, we have not obtained clearance from her insurance company for breast MRI at this time FNA UOQ right breast, follow up one week for results follow up sooner any concerns Following informed consent the area of concern in the right breast was addressed. This was prepped using alcohol. A 22-gauge needle and a 12 cc syringe was inserted into the area multiple passes were made with negative suction on the syringe. Cytology was obtained and sent to pathology. The patient tolerated the procedure in stable condition. She will return next week for results of the biopsy. Cc: Dr. Cox Additional CC's: Kalya Lopez Objective - Vital Signs Vital signs: Vital Signs Temp 98.2 F 10/26/23 14:55 Pulse 72 10/26/23 14:55 Resp 16 10/26/23 14:55 BP 148/89 10/26/23 14:55 Pulse Ox 96 10/26/23 14:55 FiO2 Intake & Output 10/25/23 10/26/23 10/26/23 18:59 06:59 18:59 Weight 80.739 kg - Constitutional General appearance: Present: cooperative - EENT Eyes: Present: EOMI ENT: Present: hearing grossly normal - Neck Neck: Present: normal ROM - Respiratory Respiratory: bilateral: CTA - Cardiovascular Heart sounds: normal: S1, S2 - Integumentary Integumentary: Present: normal turgor - Musculoskeletal Musculoskeletal: Present: gait normal - Psychiatric Psychiatric: Present: A&O x's 3, appropriate affect, intact judgment & insight - Additional findings Additional findings: Breast Exam: BRA: 36D Inspection: bilateral grade 2 ptosis Palpation: Right breast: Very dense breast with fullness in the lateral aspect persistent Right axilla: No adenopathy of concern Left breast: Very dense breast no discrete dominant masses or nodules of concern Left axilla: No adenopathy of concern Assessment and Plan Assessment: Impression: dense breast diabetic disease frozen shoulder right fullness UOQ right breast Plan: discussed genetic testing/ she will follow up with this left breast mammogram in December attempt to get breast MRI/dense breast and life time risk 19.9%, we have not obtained clearance from her insurance company for breast MRI at this time; clearance denied from insurance company FNA UOQ right breast done nondiagnositic ultrasound of the right UOQ to follow up after ultrasound, if this does not show anything will do a core biopsy of the area Cc: Dr. Cox
== END ==
LOC: WWCWWP 14:29
PROVIDERS: ATTEND Surgery
DX: R92.30 Dense breasts, unspecified (principal); E10.43 Type 1 diabetes mellitus with diabetic autonomic (poly)neuropathy; F17.200 Nicotine dependence, unspecified, uncomplicated; K31.84 Gastroparesis; R19.7 Diarrhea, unspecified; M75.01 Adhesive capsulitis of right shoulder; Z88.8 Allergy status to other drugs, medicaments and biological substances; Z80.3 Family history of malignant neoplasm of breast

== ENCOUNTER → 2023-11-10 | Outpatient (CLI) | payer OTHER ==
--- NOTE | 2023-11-10 09:52 | MM ---
Reason for Exam: Clinical finding. Last screening mammogram was performed 11 month(s) ago. Patient History: Menarche at age 8. First Full-Term at age 26. Paternal grandmother had breast cancer. Maternal grandmother had breast cancer. Mother had breast cancer, age 65. Risk Values: Yasmine 5 year model risk: 1.5%. NCI Lifetime model risk: 19.9%. Tissue Density: The breasts are heterogeneously dense, which may obscure small masses. Findings: Analyzed By CAD. No distinct mass at the sites of clinical concern right breast. No suspicious microcalcifications. Correlate clinically. Ultrasound right breast recommended. Overall Assessment: Incomplete: need additional imaging evaluation, BI-RAD 0 Management: Diagnostic Breast Ultrasound of the right breast. . Results were given to the patient verbally at the time of exam. Patient should continue monthly self-breast exams. A clinical breast exam by your physician is recommended on an annual basis. This exam should not preclude additional follow-up of suspicious palpable abnormalities. Note on Yasmine scores and lifetime risk: 1. A Yasmine score greater than 3% is considered moderate risk. If this is the case, consider specialist referral to assess eligibility for a risk reducing agent. 2. If overall lifetime risk for the development of breast cancer is 20% or higher, the patient may qualify for future screening with alternating mammogram and breast MRI. Electronically signed and approved by: Samuel Donato M.D. Radiologis
--- NOTE | 2023-11-10 10:07 | USB ---
Reason for Exam: Clinical finding. Patient History: Menarche at age 8. First Full-Term at age 26. Paternal grandmother had breast cancer. Maternal grandmother had breast cancer. Mother had breast cancer, age 65. Risk Values: Yasmine 5 year model risk: 1.5%. NCI Lifetime model risk: 19.9%. Technique: Method: Targeted. Prior Study Comparison: 06/29/2020 Bilateral Diagnostic Mammogram, [facility]. 12/26/2022 Bilateral MG 3D diag mammo w/cad JULIANA, [facility]. 08/29/2023 Left MG 3D diag mammo w/cad LT, [facility]. Findings: The upper outer quadrant of the right breast, the area of palpable concern of the right breast, the axilla of the right breast and the retroareolar of the right breast were scanned. No solid or cystic masses are identified at the site of clinical concern. Mildly prominent ducts. Overall Assessment: Benign, BI-RAD 2 Management: Screening Mammogram of both breasts in 1 year. A clinical breast exam by your physician is recommended on an annual basis and results should be correlated with mammographic findings. This exam should not preclude additional follow-up of suspicious palpable abnormalities. Results were given to the patient verbally at the time of exam. Electronically signed and approved by: Samuel Donato M.D. Radiologis
== END | disposition home or self-care (01) ==
LOC: RADUSWWP 09:08
PROVIDERS: ATTEND Surgery
DX: R92.333 Mammographic heterogeneous density, bilateral breasts (principal); N63.11 Unspecified lump in the right breast, upper outer quadrant; Z80.3 Family history of malignant neoplasm of breast
CPT/HCPCS: 77066; 76642; G0279; 77062

== ENCOUNTER → 2023-12-15 | Outpatient (CLI) | payer OTHER ==
--- NOTE | 2023-12-15 10:58 | P.PN ---
Subjective Progress Note Date: 12/15/23 Principal diagnosis: fullness left breast UOQ Fullness right breast upper outer quadrant polyp left nipple left nipple lesion Yael is a 42-year-old female who was initially seen in consultation for Dr. Juan Pablo Cox on 11-10-2022, regarding the left nipple lesion, and fibrocysitc disease. She underwent an excision of the lesion on the left nipple operating room on 01-24-2023. This revealed a benign fibroepithelial polyp. Prior to that she had undergone a bilateral mammogram on 12-26-2022 followed by a bilateral breast ultrasound on the same date. This was felt to be benign BI- RADS 2. The patient has had a recent left breast mammogram on 08-29-2023 which is benign BI-RADS 2. The this was personally reviewed. The patient is not complaining of any new lumps masses or nodules of concern. The polyp at the nipple has not recurred. She is not complaining of any nipple discharge or skin changes. The patient is a brittle diabetic, she has been a diabetic for over 20 years, she is presently going for a review to be on the pancreas transplant list. Additionally, she was recently diagnosed with gastroparesis. She has been started on truliance to cause her to have bowel movements. She has diarrhea with this. She has not done any exams to tell whether she has any new lumps masses or nodules of concern in either breast. On her last visit of 08-30-2023 she was noted to have increased fullness in the right breast in the upper outer quadrant area. An FNA of this area was recommended. 10-26-23 An FNA of the right breast UOQ was done on 10-09-23, this was nondiagnostic. Was hypocellular consisting of fragments of adipose tissue in a background of blood. 11-10-23 bilateral mammogram BIRAD 0; right breast ultrasound recommended 11-10-23 right breast ultrasound done BIRAD 2 no lesions of concern noted Yasmine 5-year model risk: 1.5% NCI lifetime risk 19.9% Caffeine: 2 cups coffee/day energy drink occasional nicotine: 10/day since 11 years old chocolate: occasional BCP: shots as a teenager Family History: father: colon cancer, skin cancer mother: breast cancer, skin cancer, uterine cancer (? melanoma) maternal grandmother: breast cancer paternal grandmother: breast cancer Hormonal History: menarche: 8 , breast fed: yes, age at first : 21 no periods ablation at 39 hormones: none Surgical history: ablation uterine 2 C sections Medical history: Diabetic Back pain HTN high cholesterol arthritis Mitral valve prolapse with regurgitation gastroporesis bilateral shoulder joint pian/frozen Social History: alcohol: none drugs: none nicotine: as above - Constitutional Constitutional: Denies chills, Denies fever - EENT Comment: blood behind right eye Eyes: denies blurred vision, denies pain Ears: right: decreased hearing, deny: tinnitus Ears, nose, mouth and throat: Denies headache, Denies sore throat - Breasts Breasts: bilateral: as per HPI - Cardiovascular Cardiovascular: Denies chest pain, Denies shortness of breath - Respiratory Respiratory: Reports cough - Gastrointestinal Comment: Crohn's colitis hospitalized Gastrointestinal: Denies abdominal pain, Denies diarrhea, Denies nausea, Denies vomiting - Genitourinary (Female) Genitourinary: Denies dysuria, Denies hematuria - Menstruation Menstruation: Reports as per HPI - Musculoskeletal Musculoskeletal: Reports myalgias - Integumentary Integumentary: Denies pruritus, Denies rash - Neurological Comment: left leg numb from knee to ankle - Psychiatric Psychiatric: Denies anxiety, Denies depression - Endocrine Endocrine: Reports weight change, Denies fatigue - Hematologic/Lymphatic Comment: none - Allergic/Immunologic Allergic/Immunologic: Reports as per HPI Past Medical History Past Medical History: Diabetes Mellitus, Hyperlipidemia, Hypertension, Osteoarthritis (OA) Additional Past Medical History / Comment(s): MITRAL VALVE PROLAPSE , TYPE 1 DIABETIC, BONE SPUR LEFT SHOULDER, NEUROPATHY HANDS AND FEET, HAVING DIGESTIVE ISSUES-BLOATING AND CONSTIPATION History of Any Multi-Drug Resistant Organisms: None Reported Past Surgical History: Section, Uterine Ablation Additional Past Surgical History / Comment(s): C SECTION X2 , PAIN CLINIC PROCEDURES IN THE PAST Past Anesthesia/Blood Transfusion Reactions: No Reported Reaction Past Psychological History: No Psychological Hx Reported Smoking Status: Current every day smoker Past Alcohol Use History: None Reported Past Drug Use History: None Reported - Past Family History Mother Family Medical History: Cancer Medications and Allergies Home Medications Medication Instructions Recorded Confirmed Type INSULIN LISPRO (humaLOG) [humaLOG] See Protocol SQ ACHS PRN 10/31/19 10/13/22 History Ibuprofen [Motrin] 800 mg PO Q8H PRN 10/31/19 10/13/22 History Metoprolol Tartrate [Lopressor] 25 mg PO BID 10/31/19 10/13/22 History Diclofenac Sodium Gel [Voltaren 1 applic TOPICAL DAILY PRN 03/29/22 10/13/22 History Gel] Rosuvastatin [Crestor] 10 mg PO DAILY 03/29/22 10/13/22 History Albuterol Inhaler [Ventolin Hfa 2 puff INHALATION RT-Q6H PRN 10/13/22 10/13/22 History Inhaler] Amoxic-Pot Clav 875-125Mg 1 tab PO Q12HR 10/13/22 10/13/22 History [Augmentin 875-125] Insulin Detemir [Levemir Flexpen] 42 units SQ DAILY 10/13/22 10/13/22 History lisinopriL [Zestril] 2.5 mg PO DAILY 10/13/22 10/13/22 History Allergies Allergy/AdvReac Type Severity Reaction Status Date / Time marijuana (cannabis) AdvReac Itching Verified 11/10/22 12:56 Objective - Constitutional General appearance: Present: cooperative - EENT Eyes: Present: EOMI ENT: Present: hearing grossly normal - Neck Neck: Present: normal ROM - Respiratory Respiratory: bilateral: CTA - Cardiovascular Heart sounds: normal: S1, S2 - Integumentary Integumentary: Present: normal turgor - Musculoskeletal Musculoskeletal: Present: gait normal - Psychiatric Psychiatric: Present: A&O x's 3, appropriate affect, intact judgment & insight - Additional findings Additional findings: Breast Exam: BRA: 36D Inspection: bilateral grade 2 ptosis Palpation: Right breast: Very dense breast with fullness in the lateral aspect persistent Right axilla: No adenopathy of concern Left breast: Very dense breast no discrete dominant masses or nodules of concern Left axilla: No adenopathy of concern Assessment and Plan Assessment: Impression: dense breast diabetic disease frozen shoulder fullness right breast UOQ she is on the list for a pancreatic transplant Plan: discussed genetic testing/ she will follow up with this (states insurance wont cover this) Bilateral mammogram November 2024 follow up after this attempt to get breast MRI/dense breast and life time risk 19.9%, we have not obtained clearance from her insurance company for breast MRI at this time FNA UOQ right breast, done on 10-09-23 ( hypocellular speciman) core biopsy right breast OUQ follow up sooner any concerns I have discussed with the patient the fullness in the right breast in the upper outer quadrant area. Radiographically there is nothing of concern there however there is a persistent fullness palpable. FNA has failed to give us a diagnosis. After discussion the patient would like to have a core biopsy of this area to confirm that there is nothing of concern there. This will be scheduled in the near future. Cc: Dr. Cox
== END ==
LOC: WWCWWP 09:48
PROVIDERS: ATTEND Surgery
DX: R92.30 Dense breasts, unspecified (principal); E10.43 Type 1 diabetes mellitus with diabetic autonomic (poly)neuropathy; M75.00 Adhesive capsulitis of unspecified shoulder; F17.200 Nicotine dependence, unspecified, uncomplicated; Z80.3 Family history of malignant neoplasm of breast; Z94.83 Pancreas transplant status; Z88.8 Allergy status to other drugs, medicaments and biological substances

== ENCOUNTER → 2023-12-21 | Outpatient (CLI) | payer OTHER ==
[2023-12-21 08:31] VITALS: BP 157/93; PULSE 68; RESP 17; TEMP 98.3
--- NOTE | 2023-12-21 08:50 | P.PN ---
Subjective Progress Note Date: 12/21/23 Principal diagnosis: core biopsy fullness UOQ Right Breast pre-procedure DX: fullness right breast UOQ post procedure diagnosis: same procedure: core biopsy right breast UOQ Procedure: The area of concern in the UOQ of hte right breast was prepped using chlorehexidine. 5 cc of 1% lidocoine was used to anesthetize the area. An 18 G Bard spring loaded core biopsy needlewas inserted into the area of concern. The needle was used to obtain 3 specimens. The specimens were sent to pathology, the patient will follow up in 1 week. She tolerated the procedure in stable condition. CC: Dr. Juan Pabol Cox Objective - Vital Signs Vital signs: Vital Signs Temp 98.3 F 12/21/23 08:04 Pulse 68 12/21/23 08:04 Resp 17 12/21/23 08:04 BP 157/93 12/21/23 08:04 Pulse Ox 100 12/21/23 08:04 FiO2 Intake & Output 12/20/23 12/21/23 12/21/23 18:59 06:59 18:59 Weight 82.554 kg
== END ==
LOC: WWCWWP 07:49
PROVIDERS: ATTEND Surgery
DX: Z04.89 Encounter for examination and observation for other specified reasons (principal); N63.11 Unspecified lump in the right breast, upper outer quadrant

== ENCOUNTER → 2024-07-04 | Outpatient (CLI) | payer OTHER ==
[2024-07-04 11:45] VITALS: BP 143/94; PULSE 74; RESP 17; TEMP 97.6
--- NOTE | 2024-07-04 12:10 | P.PN ---
Subjective Progress Note Date: 07/04/24 Principal diagnosis: fibrocystic breast disease 12/15/23 Principal diagnosis: fullness left breast UOQ Fullness right breast upper outer quadrant polyp left nipple left nipple lesion Yael is a 42-year-old female who was initially seen in consultation for Dr. Juan Pablo Cox on 11-10-2022, regarding the left nipple lesion, and fibrocysitc disease. She underwent an excision of the lesion on the left nipple operating room on 01-24-2023. This revealed a benign fibroepithelial polyp. Prior to that she had undergone a bilateral mammogram on 12-26-2022 followed by a bilateral breast ultrasound on the same date. This was felt to be benign BI- RADS 2. The patient has had a recent left breast mammogram on 08-29-2023 which is benign BI-RADS 2. The this was personally reviewed. The patient is not complaining of any new lumps masses or nodules of concern. The polyp at the nipple has not recurred. She is not complaining of any nipple discharge or skin changes. The patient is a brittle diabetic, she has been a diabetic for over 20 years, she is presently going for a review to be on the pancreas transplant list. Additionally, she was recently diagnosed with gastroparesis. She has been started on truliance to cause her to have bowel movements. She has diarrhea with this. She has not done any exams to tell whether she has any new lumps masses or nodules of concern in either breast. On her last visit of 08-30-2023 she was noted to have increased fullness in the right breast in the upper outer quadrant area. An FNA of this area was recommended. 10-26-23 An FNA of the right breast UOQ was done on 10-09-23, this was nondiagnostic. Was hypocellular consisting of fragments of adipose tissue in a background of blood. 11-10-23 bilateral mammogram BIRAD 0; right breast ultrasound recommended 11-10-23 right breast ultrasound done BIRAD 2 no lesions of concern noted 07-04-24 ultrasound core of the right breast on 12-01-23 benign most recent mammogram 11-10-23 bilateral mammogram BIRAD 0; right breast ultrasound recommended 11-10-23 right breast ultrasound done BIRAD 2 no lesions of concern noted She was declined to have a pancreatic transplant, secondary to high BMI; she gained 40 pounds in two months she believes secondary to gabapentin for pain She does not feel any specific lesions in either breast Yasmine 5-year model risk: 1.5% NCI lifetime risk 19.9% Caffeine: 2 cups coffee/day energy drink occasional nicotine: 10/day since 11 years old chocolate: occasional BCP: shots as a teenager Family History: father: colon cancer, skin cancer mother: breast cancer, skin cancer, uterine cancer (? melanoma) maternal grandmother: breast cancer paternal grandmother: breast cancer Hormonal History: menarche: 8 , breast fed: yes, age at first : 21 no periods ablation at 39 hormones: none Surgical history: ablation uterine 2 C sections Medical history: Diabetic Back pain HTN high cholesterol arthritis Mitral valve prolapse with regurgitation gastroporesis bilateral shoulder joint pian/frozen Social History: alcohol: none drugs: none nicotine: as above - Constitutional Constitutional: Denies chills, Denies fever - EENT Comment: blood behind right eye Eyes: denies blurred vision, denies pain Ears: right: decreased hearing, deny: tinnitus Ears, nose, mouth and throat: Denies headache, Denies sore throat - Breasts Breasts: bilateral: as per HPI - Cardiovascular Cardiovascular: Denies chest pain, Denies shortness of breath - Respiratory Respiratory: Reports cough - Gastrointestinal Comment: Crohn's colitis hospitalized Gastrointestinal: Denies abdominal pain, Denies diarrhea, Denies nausea, Denies vomiting - Genitourinary (Female) Genitourinary: Denies dysuria, Denies hematuria - Menstruation Menstruation: Reports as per HPI - Musculoskeletal Musculoskeletal: Reports myalgias - Integumentary Integumentary: Denies pruritus, Denies rash - Neurological Comment: left leg numb from knee to ankle - Psychiatric Psychiatric: Denies anxiety, Denies depression - Endocrine Endocrine: Reports weight change, Denies fatigue - Hematologic/Lymphatic Comment: none - Allergic/Immunologic Allergic/Immunologic: Reports as per HPI Past Medical History Past Medical History: Diabetes Mellitus, Hyperlipidemia, Hypertension, O steoarthritis (OA) Additional Past Medical History / Comment(s): MITRAL VALVE PROLAPSE , TYPE 1 DIABETIC, BONE SPUR LEFT SHOULDER, NEUROPATHY HANDS AND FEET, HAVING DIGESTIVE ISSUES-BLOATING AND CONSTIPATION History of Any Multi-Drug Resistant Organisms: None Reported Past Surgical History: Section, Uterine Ablation Additional Past Surgical History / Comment(s): C SECTION X2 , PAIN CLINIC PROCEDURES IN THE PAST Past Anesthesia/Blood Transfusion Reactions: No Reported Reaction Past Psychological History: No Psychological Hx Reported Smoking Status: Current every day smoker Past Alcohol Use History: None Reported Past Drug Use History: None Reported - Past Family History Mother Family Medical History: Cancer Medications and Allergies Home Medications Medication Instructions Recorded Confirmed Type INSULIN LISPRO (humaLOG) [humaLOG] See Protocol SQ ACHS PRN 10/31/19 10/13/22 History Ibuprofen [Motrin] 800 mg PO Q8H PRN 10/31/19 10/13/22 History Metoprolol Tartrate [Lopressor] 25 mg PO BID 10/31/19 10/13/22 History Diclofenac Sodium Gel [Voltaren 1 applic TOPICAL DAILY PRN 03/29/22 10/13/22 History Gel] Rosuvastatin [Crestor] 10 mg PO DAILY 03/29/22 10/13/22 History Albuterol Inhaler [Ventolin Hfa 2 puff INHALATION RT-Q6H PRN 10/13/22 10/13/22 History Inhaler] Amoxic-Pot Clav 875-125Mg 1 tab PO Q12HR 10/13/22 10/13/22 History [Augmentin 875-125] Insulin Detemir [Levemir Flexpen] 42 units SQ DAILY 10/13/22 10/13/22 History lisinopriL [Zestril] 2.5 mg PO DAILY 10/13/22 10/13/22 History Allergies Allergy/AdvReac Type Severity Reaction Status Date / Time marijuana (cannabis) AdvReac Itching Verified 11/10/22 12:56 Objective - Vital Signs Vital signs: Vital Signs Temp 97.6 F 07/04/24 11:43 Pulse 74 07/04/24 11:43 Resp 17 07/04/24 11:43 BP 143/94 07/04/24 11:43 Pulse Ox 99 07/04/24 11:43 FiO2 Intake & Output 07/03/24 07/04/24 07/04/24 18:59 06:59 18:59 Weight 79.832 kg - Constitutional General appearance: Present: cooperative - EENT Eyes: Present: EOMI ENT: Present: hearing grossly normal - Neck Neck: Present: normal ROM - Respiratory Respiratory: bilateral: CTA - Cardiovascular Rhythm: regular Heart sounds: normal: S1, S2 - Integumentary Integumentary: Present: normal turgor - Musculoskeletal Musculoskeletal: Present: gait normal - Psychiatric Psychiatric: Present: A&O x's 3, appropriate affect, intact judgment & insight - Additional findings Additional findings: Breast Exam: BRA: 36D Inspection: bilateral grade 2 ptosis Palpation: Right breast: Very dense breast, no dominant masses or nodules of concern on examination Right axilla: No adenopathy of concern Left breast: Very dense breast no discrete dominant masses or nodules of concern Left axilla: No adenopathy of concern Assessment and Plan Assessment: Impression: dense breast diabetic disease frozen shoulder fullness right breast UOQ/ core biopsy benign/fibrocystic breast disease she was on the list for a pancreatic transplant but this was declined Plan: discussed genetic testing/ she will follow up with this (states insurance won't cover this) Bilateral mammogram November 2025 follow up after this attempt to get breast MRI/dense breast and life time risk 19.9%, we have not obtained clearance from her insurance company for breast MRI at this time follow up sooner any concerns Cc: Dr. Cox
== END ==
LOC: WWCWWP 09:59
PROVIDERS: ATTEND Surgery
DX: N60.11 Diffuse cystic mastopathy of right breast (principal); E10.43 Type 1 diabetes mellitus with diabetic autonomic (poly)neuropathy; M75.00 Adhesive capsulitis of unspecified shoulder; R92.30 Dense breasts, unspecified; R92.8 Other abnormal and inconclusive findings on diagnostic imaging of breast; Z94.83 Pancreas transplant status; Z88.8 Allergy status to other drugs, medicaments and biological substances

== ENCOUNTER → 2024-08-17 | Outpatient (CLI) | payer OTHER ==
--- NOTE | 2024-08-22 09:10 | BMR ---
EXAM DATE: 08/17/2024 EXAM DESCRIPTION: MRI-Breast Bilat (W/WO Contrast) INDICATION: Screening MRI>20% lifetime risk for malignancy presenting for high risk surveillance COMPARISON: Comparison is made with relevant prior imaging in PACS. CONTRAST: 8.0 cc of Gadavist TECHNIQUE: Multiplanar MRI imaging of both breasts was performed with a dedicated breast coil, before and after intravenous administration of gadolinium contrast, using the standard breast mass protocol. Computer-aided detection was used to aid in interpretation. FINDINGS: General breast composition: The breast is heterogeneously dense Background parenchymal enhancement: Moderate FINDINGS: Right Breast: Review of the dynamic contrast-enhanced series shows no rapidly enhancing masses, suspicious enhancement patterns or other abnormalities. The T2 weighted series shows no abnormality. Left Breast: Review of the dynamic contrast-enhanced series shows no rapidly enhancing masses, suspicious enhancement patterns or other abnormalities. The T2 weighted series shows no abnormality. IMPRESSION: No MRI evidence of malignancy. BI-RADS Category1- Negative Recommendation: MRI screening in 1 year MTDD
== END | disposition home or self-care (01) ==
LOC: RADMRIMAIN 10:15
PROVIDERS: ATTEND Surgery
DX: R92.30 Dense breasts, unspecified (principal)
CPT/HCPCS: C8908; A9585; 77049

== ENCOUNTER → 2024-09-25 | Outpatient (CLI) | payer OTHER ==
[2024-09-25 10:51] LABS: Estradiol 59.8 pg/mL
[2024-09-25 10:55] LABS: Follicle Stimulating Hormone 9.1 mIU/mL; Prolactin 11.7 ng/mL (2.800-29.200)
== END | disposition home or self-care (01) ==
LOC: LABWHC1 08:12
PROVIDERS: ATTEND Radiology Radiation Oncology
DX: D35.2 Benign neoplasm of pituitary gland (principal)
CPT/HCPCS: 36415; 82533; 82670; 83001; 83002; 83003; 84146; 84305; 84443